=== PATIENT | male | born 1955 | race Caucasian/White ===

== ENCOUNTER 2016-08-24 10:16 | Day surgery (SDC) | payer OTHER ==
[~2016-08-24] VITALS: Ht 185.4 cm; Wt 101.8 kg
[2016-08-24] VITALS (9 sets, daily range): BP systolic 145–170; BP diastolic 70–91; PULSE 86–99; RESP 16–23; Ht 185.4 cm; Wt 101.8 kg
[2016-08-24] MEDS ORDERED: ENAL10TA PO (10:42)
[2016-08-24] MEDS ORDERED: METF-480 PO (10:43)
[2016-08-24 11:16] LABS: ADD SCAN DIFF NO
[2016-08-24 11:19] LABS: BASOPHIL # 0.1 10^3/ul (0.0-0.1); BASOPHILS % 0.8 % (0.0-2.0); EOSINOPHILS # 0.8 10^3/ul (0.0-0.5); EOSINOPHILS % 11.4 % (0.0-7.0); HEMATOCRIT 42.1 % (42.0-52.0); HEMOGLOBIN 13.9 g/dl (14.0-18.0); LYMPHOCYTES # 1.9 10^3/ul (0.8-2.9); LYMPHOCYTES % 26.9 % (15.0-51.0); MEAN CORPUSCULAR HEMOGLOBIN 30.3 pg (29.0-33.0); MEAN CORPUSCULAR VOLUME 91.7 fl (82.0-101.0); MEAN PLATELET VOLUME 11.9 fl (7.4-10.4); MONOCYTE # 0.7 10^3/ul (0.3-0.9); MONOCYTES % 9.8 % (0.0-11.0); NEUTROPHIL # 3.6 10^3/ul (1.6-7.5); NEUTROPHILS % 50.3 % (39.0-77.0); PLATELET COUNT 153 10^3/UL (140-415); RED BLOOD COUNT 4.59 10^6/ul (4.70-6.10); RED CELL DISTRIBUTION WIDTH 12.9 % (11.5-14.5); WHITE BLOOD COUNT 7.2 10^3/ul (4.8-10.8)
[2016-08-24 11:29] LABS: ALBUMIN 4.2 g/dl (3.3-4.9)
[2016-08-24 11:32] LABS: ALBUMIN/GLOBULIN RATIO 1.05; BILIRUBIN,INDIRECT 0.2 mg/dl (0-1.1); BILIRUBIN,TOTAL 0.2 mg/dl (0.2-1.3); TOTAL PROTEIN 8.2 g/dl (6.1-8.1)
[2016-08-24] MEDS ORDERED: LIDOCAINE 1% (MDV) 20 ML INJ ONE (11:53)
[2016-08-24] MEDS ORDERED: IODIXANOL LOCM 50 ML BTL ONE (11:53)
[2016-08-24] MEDS ORDERED: IODIXANOL LOCM 100 ML BTL ONE (11:53)
[2016-08-24 11:55] LABS: CALCIUM 9.5 mg/dl (8.4-10.2); CREATININE 0.82 mg/dl (0.61-1.24)
[2016-08-24 11:58] LABS: POTASSIUM 5.2 mmol/L (3.5-5.1)
[2016-08-24] MEDS ORDERED: FENTAnyl 50 MCG/ML VIAL ONE (12:00)
[2016-08-24] MEDS ORDERED: MIDAZOLAM 1 MG/ML 2 ML INJ ONE (12:01)
[2016-08-24 12:22] LABS: PARTIAL THROMBOPLASTIN TIME 25.7 Sec (25.0-35.0); PROTIME 12.3 Sec (12.2-14.2)
[2016-08-24] MEDS ORDERED: hydrALAzine 20 MG INJ ONE (13:12)
--- NOTE | 2016-08-24 13:36 | OPR ---
DATE OF OPERATION: 08/24/2016 PREPROCEDURE DIAGNOSIS: Severe left calf claudication. POSTPROCEDURE DIAGNOSIS: Severe left calf claudication. PROCEDURE PERFORMED 1. Abdominal aortogram. 2. Percutaneous catheter placement from right common femoral artery into left superficial femoral a rtery. 3. Abdominal aortogram and bilateral lower extremity runoff. SURGEON: Percy Sanchez MD ANESTHESIA: Local with sedation. ESTIMATED BLOOD LOSS: Minimal. COMPLICATIONS: No intraprocedural complications. INDICATIONS: This is a 61-year-old diabetic long time smoker with severe left calf claudication for at least 6 months. He had less than a block. He had a noninvasive testing which showed diffuse SF A disease, brought him in today for angiogram and possible intervention. PROCEDURE: The patient was brought to the cath lab tech and placed on the table in supine position. The groins were prepped and draped in usual sterile fashion. We began by using ultrasound guidance to identify the right common femoral artery. I infiltrated over the artery using about 10 mL of 1% Xyl ocaine and used a micropuncture needle to enter the artery under ultrasound guidance. An 0.018 wire was inserted through the needle into the artery then a micropuncture sheath was advanced over the w ketty into the artery. I then advanced 0.035 Bentson wire up into the abdominal aorta, exchanged the micropuncture sheath for a 5-Sudanese sheath over the wire. I then advanced an Omniflush catheter int o the infrarenal aorta and then we did an aortogram with bilateral runoff. I then advanced the cath eter up and over the bifurcation. I used the Omniflush and a Glidewire to advance the Glidewire up and over the bifurcation and into the left superficial femoral artery. Then I exchanged the Omniflu sh for a 4-Sudanese angled glide cath which was advanced into the left SFA and then did runoff down th e left lower extremity. FINDINGS OF ANGIOGRAPHY: The infrarenal aorta was patent. The renal arteries were not visualized. There is calcification and some diffuse irregularity, but no significant stenosis in the aortoiliac segment. Both common and profunda femoral arteries were widely patent. The right superficial femo ral and popliteal artery is widely patent with 3-vessel runoff on the right all the way down crossin g the ankle into the foot. He has normal runoff on the right. On the left, the proximal SFA is lik e a string and it occludes in the mid thigh. There is reconstitution of the popliteal artery right below the adductor canal with 3-vessel runoff below the knee. The vessels, given his size, are quit e small, but there are patent and there is really sluggish flow and has very poor collateralization. He was given his age, I wanted to talk to him about options prior to treating him. I have given t he option of doing a bypass. He has already been sedated, so I decided not to proceed with any furt her intervention. At this point, I removed all catheters, sheaths and wires and held pressure on the right groin until there was good hemostasis. I will see him back in the office and discuss the options of proceeding with percutaneous intervention, which probably has a fairly limited lifespan, and given his young a ge and very high activity level, he might be better off with the bypass and we will discuss that wit h him when we see him back for followup. Dictated By: PERCY PALACIOS/BAN Conf#: [id number] DID#: [id number]
== END 2016-08-24 17:02 | disposition home or self-care (01) ==
LOC: SDS 10:16
PROVIDERS: ATTEND Surgery Vascular Surgery
DX: I73.9 Peripheral vascular disease, unspecified (principal)
CPT/HCPCS: 36245; 75630; 80053; 82962; 85025; 85610; 85730; C1769; C1894; J0360; J1644; J2250; J3010; Q9967; Z7610

== ENCOUNTER 2016-08-27 11:26 | Emergency (ER) | payer OTHER ==
[~2016-08-27] VITALS: Ht 185.4 cm; Wt 105.0 kg
[~2016-08-27 11:26] MED LIST: ENAL10TA PO; METF-480 PO
[2016-08-27 11:37] VITALS: Ht 185.4 cm; Wt 105.0 kg
[2016-08-27 13:40] LABS: URINE BLOOD (Dip) POC Negative (NEGATIVE)
[2016-08-27] MEDS ORDERED: HYDROCODONE/APAP (5/325) TAB PO ONE (14:00)
[2016-08-27] MEDS ORDERED: HYDR-906 PO (15:07)
--- NOTE | 2016-08-27 15:07 | ERD ---
ER Documentation Chief Complaint Date/Time DATE: 08/27/16 TIME: 14:52 Chief Complaint BACK PAIN X3 DAYS, S/P ANGIOGRAM ON 08/24, HPI Pleasant 61-year-old male patient presents to emergency department today for back pain, reported right lumbar. Symptoms started 3 days ago, patient reports difficulty ambulating related to pain denies foot drag. Rising from a supine position, denies bowel or bladder incontinence. status post angiograph via right groin access for severe left calf claudication. Procedure performed by Dr. Ricardo Sanchez, reports abdominal aortogram, PTCA right common femoral artery into left superficial femoral artery and abdominal aortogram and bilateral lower extremity runoff. Patient reports no pain in right groin, states he developed back pain later in the evening after procedure. Pain is sharp, stabbing, 8/10 on pain scale. Patient has remote history of spinal fusion, has thoracic lumbar scar suggestive of fusion. Patient reports he normally has no pain in his back. Is currently taking no medication for symptomatic relief. Has follow-up appointment with watch and clock repair clerk in 2 days. Patient denies shortness of breath, palpitations, chest pain, or dizziness. Denies any change in left calf pain ROS All systems reviewed and are negative except as per history of present illness. Medications Home Meds Active Scripts Hydrocodone/Acetaminophen ([place] 5-325 Tablet) 1 Each Tablet, 1 TAB PO Q6H Y for PAIN, #20 TAB Prov:YON,ORLANDO 08/27/16 Reported Medications Metformin* (Glucophage*) 850 Mg Tablet, 850 MG PO WITH BREAKFAST DINNE, #30 TAB 08/24/16 Enalapril Maleate* (Enalapril Maleate*) 10 Mg Tablet, 10 MG PO BID, TAB 08/24/16 Allergies Allergies: Coded Allergies: Penicillins (Verified Allergy, Severe, RASH, 08/24/16) PER PT PMhx/Soc History of Surgery: Yes (L3-5 SX WITH TITANIUM, ANGIOGRAM) Anesthesia Reaction: No Hx Neurological Disorder: Yes (PERIPHERAL NEUROPATHY) Hx Respiratory Disorders: No Hx Cardiac Disorders: Yes (HTN, CAD) Hx Psychiatric Problems: No Hx Miscellaneous Medical Probl: No Hx Alcohol Use: Yes (FORMER) Hx Substance Use: No Hx Tobacco Use: No (LAST SMOKED [id number] AGO) Smoking Status: Former smoker Physical Exam Vitals Vital Signs Date Time Temp Pulse Resp B/P Pulse Ox O2 Delivery O2 Flow Rate FiO2 08/27/16 15:13 98.2 76 18 142/67 96 Room Air 08/27/16 11:37 98.6 106 19 155/70 95 Vitals stable, nursing notes reviewed Physical Exam Const: No acute distress Head: Atraumatic Eyes: Normal Conjunctiva clear, no pallor, no jaundice, EOMI, PERRLA ENT: Neck: Resp: Clear to auscultation bilaterally Cardio: Regular rate and rhythm, no murmurs Abd: Soft, non tender, non distended. N Skin: Right groin small puncture site from PTCA, no ecchymosis, no hematoma, no edema Back Exam: Skin: No bruising or rash Compartments: Soft Motor: Straight leg raises positive on the left at 30. Patient able to flex hip, Sensation: Intact to light touch throughout Bones: no midline TTP, paraspinal tenderness. Ext: No cyanosis, or edema Neur: Awake and alert Psych: Normal Mood and Affect Results 24 hrs Laboratory Tests Test 08/27/16 13:43 Bedside Urine Blood Negative Bedside Urine Glucose (UA) Negative Bedside Urine Ketones (LAB) Negative Bedside Urine Leukocyte Esterase (L Negative Bedside Urine Nitrite (LAB) Negative Bedside Urine Protein (LAB) Negative Bedside Urine pH (LAB) 5.5 Current Medications Medications (Trade) Dose Ordered Sig/Keila Route PRN Reason Start Time Stop Time Status Last Admin Dose Admin Acetaminophen/ Hydrocodone Bitart ([place] (5/325)) 1 tab ONCE ONCE PO 08/27/16 14:00 08/27/16 14:01 DC 08/27/16 14:08 Procedures/MDM Pleasant 61-year-old male patient presenting to emergency department with complaint of back pain. Patient has complex medical history including recent PTCA right common femoral artery to the left superficial femoral artery for severe left calf claudication. Patient is meeting with his watch and clock repair clerk in 2 days to discuss treatment options. Patient denies any change in left calf pain. Reports that he developed right-sided back pain after procedure. Patient has history of back surgery, status post spinal fusion in the remote past. Urinary tract infection likely after Chao catheter placement during procedure but ruled out by urine dip. Cauda equina included in differential but unlikely. Patient has no bowel or bladder incontinence. Difficulty ambulating not related to foot drag. I filled back pain is related to procedure and sheath removal. A trial of 5 mg [place] was given patient reassessed after 30 minutes, patient reports improvement in pain. He is able to move with increased flexibility and decreased pain. I feel the patient is stable for discharge at this time and is an excellent candidate for pain management if symptoms persist. I will prescribe a short dose of [place], patient will follow up with cardiology in 48 hours. Stressed the importance of communicating today's event with fabricating machine operator. I have discussed results, examination findings, the treatment plan with the patient and family present prior to discharge. Indications for emergent reevaluation chest pain, shortness of breath, difficulty ambulating, foot drag, urinary or bowel incontinence., side effects of medication were also discussed. All questions were answered. Patient verbalizes understanding and agrees with plan of care. Departure Diagnosis: Primary Impression: Back pain Chronicity: acute Back pain laterality: right Sciatica presence: without sciatica Condition: Fair Patient Instructions: Back Pain (Acute Or Chronic) Additional Instructions: Thank you for for coming to [facility] for your care today. Please ask your nurse or provider if you have questions about your care today and do not leave until all your questions have been answered. Please use any medications given as directed and follow-up with your doctor (or the doctor you were referred to) in the next 2-3 days. If you do not have a primary care doctor you may follow up at the [facility] (listed below). You may also use motrin and tylenol as needed for fever and/or pain unless instructed otherwise by your provider or nurse. Indications for more urgent follow-up have been discussed, but you may return to the Emergency Department at ANY time for any worrisome or worsening symptoms. If you have abdominal pain, please know that no test or exam you received is perfect and you should follow up within 8 hours for continued pain. If you had any imaging studies today, such as an X-Ray or CT Scan, these studies will be reviewed later by a radiologist. You will be called if there are important findings that were not identified today, so make sure the contact information you provided at registration is correct. If you received any narcotic pain control medicine today, such as Vicodin, Morphine or Dilaudid, your coordination and judgment may be affected for a number of hours. Please do not drive or operate heavy machinery, and you may want someone to assist you at home. If you were given a prescription for narcotic medication, be aware that it is very addictive- use sparingly and only if necessary. ORLANDO MARVIN Aug 27, 2016 15:06
[2016-08-27 15:13] VITALS: BP 142/67; PULSE 76; RESP 18; TEMP 98.2
== END 2016-08-27 15:14 | disposition home or self-care (01) ==
LOC: FTE 11:26
DX: M54.5 Low back pain (principal); I10 Essential (primary) hypertension; I25.10 Atherosclerotic heart disease of native coronary artery without angina pectoris; E11.9 Type 2 diabetes mellitus without complications; Z87.891 Personal history of nicotine dependence; Z79.84 Long term (current) use of oral hypoglycemic drugs
CPT/HCPCS: 81003; Z7502; Z7610; 99283

== ENCOUNTER 2017-03-03 14:24 | Inpatient (IN) | payer OTHER ==
[~2017-03-03] VITALS: Ht 185.4 cm; Wt 112.5 kg
[2017-03-03 14:00] VITALS: BP 114/57; RESP 20
[~2017-03-03 14:24] MED LIST changes: +HYDR-906 PO
[2017-03-03] MEDS: CYANOCOBALAMIN 100 MCG TAB PO SCH (16:00)
[2017-03-03] MEDS: ESCITALOPRAM 10 MG TAB PO SCH (16:00)
[2017-03-03] MEDS ORDERED: ONDANSETRON 4 MG TAB PO PRN (16:00)
[2017-03-03] MEDS ORDERED: LORATADINE 10 MG TAB PO PRN (16:00)
[2017-03-03] MEDS: ENOXAPARIN 40 MG/0.4 ML SYG SC SCH (16:00)
[2017-03-03] MEDS ORDERED: HYDROCODONE/APAP (5/325) TAB PO PRN (16:00)
[2017-03-03 16:11] VITALS: Ht 185.4 cm; Wt 112.5 kg
[2017-03-03] MEDS: HYDROCODONE/APAP (5/325) TAB PO PRN ×2 (16:28→20:30)
[2017-03-03] MEDS ORDERED: HYPOGLYCEMIA PROTOCOL when Glucose is <70 mg/dL or symptomatic <90 mg/dL. XX ONE (16:30)
[2017-03-03] MEDS ORDERED: GLUCOSE GEL 15 GRAM TUBE BUCCAL PRN (16:30)
[2017-03-03] MEDS ORDERED: GLUCOSE GEL 15 GRAM TUBE PO PRN ×2 (16:30)
[2017-03-03] MEDS ORDERED: Discontinue current oral sulfonylureas (glyburide, glipizide, and/or glimepiride) prior to XX ONE (16:30)
[2017-03-03] MEDS ORDERED: DEXTROSE 50% 50 ML SYRINGE IV PRN ×2 (16:30)
[2017-03-03] MEDS: NICOTINE (7 MG/24 HR) PATCH TRANSDERM SCH (16:30)
[2017-03-03] MEDS ORDERED: GLUCAGON 1 MG INJ IM PRN (16:30)
[2017-03-03] MEDS ORDERED: LACTULOSE 30ML CUP PO PRN (17:00)
[2017-03-03] MEDS: ALBUTEROL 0.5% (NEB) 2.5 MG/0.5 ML AMP INH SCH ×2 (17:00→21:00)
[2017-03-03] MEDS ORDERED: ACETAMINOPHEN 325 MG TAB PO PRN (17:00)
[2017-03-03] MEDS: IPRATROPIUM (NEB) 0.5 MG/2.5 ML AMP INH SCH ×2 (17:00→21:00)
[2017-03-03] MEDS ORDERED: MAGNESIUM HYDROXIDE 30ML CUP PO PRN (17:00)
[2017-03-03] MEDS ORDERED: BISACODYL 10 MG SUPP PR PRN (17:00)
[2017-03-03] MEDS ORDERED: INSULIN ASPART [NOVOLOG] 3 ML PEN SC SCH (17:35)
[2017-03-03 17:37] LABS: ADD UMIC YES; UR ASCORBIC ACID NEGATIVE (NEGATIVE); UR BILIRUBIN (Dip) 1+ mg/dL (NEGATIVE); UR BLOOD (Dip) NEGATIVE (NEGATIVE); UR CLARITY CLEAR (CLEAR); UR COLOR AMBER (YELLOW); UR GLUCOSE (Dip) 1+ mg/dL (NEGATIVE); UR KETONES (Dip) NEGATIVE (NEGATIVE); UR LEUKOCYTE ESTERASE (Dip) TRACE Leu/ul (NEGATIVE); UR NITRITE (Dip) NEGATIVE (NEGATIVE); UR RBC 3 /HPF (0-5); UR SPECIFIC GRAVITY (Dip) 1.021 (1.003-1.030); UR TOTAL PROTEIN (Dip) NEGATIVE (NEGATIVE); UR UROBILINOGEN (Dip) 2+ mg/dL (NEGATIVE)
[2017-03-03] MEDS: metFORMIN 500 MG TAB PO SCH (17:50)
[2017-03-03] MEDS: Insulin NOVOLOG SS MILD Algorithm (SS with meals and bedtime) SC SCH ×2 (17:51→21:00)
[2017-03-03 20:00] VITALS: BP 129/67; RESP 18
[2017-03-03] MEDS: BUDESONIDE (NEB) 0.5MG/2ML AMP INH SCH (20:00)
[2017-03-03] MEDS: TAMSULOSIN (SR) 0.4 MG CAP PO SCH (20:30)
[2017-03-03] MEDS: FAMOTIDINE 20 MG TAB PO SCH (20:31)
[2017-03-03] MEDS: METOPROLOL 50 MG TAB PO SCH (20:31)
[2017-03-03] MEDS: ENALAPRIL 5 MG TAB PO SCH (20:32)
[2017-03-03] MEDS: SENNA TAB PO SCH (20:33)
[2017-03-03] MEDS: GABAPENTIN 400 MG CAP PO SCH (21:47)
[2017-03-03] MEDS: morphine (ER) 15 MG TAB PO SCH (21:47)
[2017-03-04 02:00] VITALS: BP 125/63; RESP 18
[2017-03-04] MEDS: ACCU-CHEK XX SCH (02:00)
[2017-03-04] MEDS: morphine (ER) 15 MG TAB PO SCH ×3 (05:30→21:36)
[2017-03-04] MEDS: GABAPENTIN 400 MG CAP PO SCH ×3 (05:30→21:36)
[2017-03-04 07:10] LABS: BASOPHILS % 0.5 % (0.0-2.0); EOSINOPHILS # 0.8 10^3/ul (0.0-0.5); EOSINOPHILS % 10.7 % (0.0-7.0); HEMATOCRIT 25.9 % (42.0-52.0); HEMOGLOBIN 8.5 g/dl (14.0-18.0); LYMPHOCYTES # 1.1 10^3/ul (0.8-2.9); LYMPHOCYTES % 14.4 % (15.0-51.0); MEAN CORPUSCULAR HEMOGLOBIN 30.4 pg (29.0-33.0); MEAN CORPUSCULAR HGB CONC 32.8 g/dl (32.0-37.0); MEAN CORPUSCULAR VOLUME 92.5 fl (82.0-101.0); MEAN PLATELET VOLUME 10.7 fl (7.4-10.4); MONOCYTE # 0.8 10^3/ul (0.3-0.9); MONOCYTES % 10.3 % (0.0-11.0); NEUTROPHILS % 62.3 % (39.0-77.0); PLATELET COUNT 313 10^3/UL (140-415); RED CELL DISTRIBUTION WIDTH 13.1 % (11.5-14.5); WHITE BLOOD COUNT 7.7 10^3/ul (4.8-10.8)
[2017-03-04 07:47] LABS: ALBUMIN 2.8 g/dl (3.3-4.9); ALBUMIN/GLOBULIN RATIO 0.87; BILIRUBIN,INDIRECT 0.6 mg/dl (0-1.1); BILIRUBIN,TOTAL 0.6 mg/dl (0.2-1.3); CALCIUM 8.7 mg/dl (8.4-10.2); CREATININE 0.72 mg/dl (0.61-1.24); POTASSIUM 4.4 mmol/L (3.5-5.1)
[2017-03-04 08:00] VITALS: BP 129/62; RESP 18
[2017-03-04] MEDS: BUDESONIDE (NEB) 0.5MG/2ML AMP INH SCH ×2 (08:00→19:57)
[2017-03-04] MEDS: CYANOCOBALAMIN 100 MCG TAB PO SCH (08:18)
[2017-03-04] MEDS: FAMOTIDINE 20 MG TAB PO SCH ×2 (08:19→21:36)
[2017-03-04] MEDS: DOCUSATE SODIUM 100 MG CAP PO SCH (08:19)
[2017-03-04] MEDS: NICOTINE (7 MG/24 HR) PATCH TRANSDERM SCH (08:19)
[2017-03-04] MEDS: ESCITALOPRAM 10 MG TAB PO SCH (08:19)
[2017-03-04] MEDS: METOPROLOL 50 MG TAB PO SCH ×2 (08:20→21:37)
[2017-03-04] MEDS: ENALAPRIL 5 MG TAB PO SCH ×2 (08:21→21:37)
[2017-03-04] MEDS: metFORMIN 500 MG TAB PO SCH ×2 (08:21→17:32)
[2017-03-04] MEDS: HYDROCODONE/APAP (5/325) TAB PO PRN ×3 (08:21→17:31)
[2017-03-04] MEDS: Insulin NOVOLOG SS MILD Algorithm (SS with meals and bedtime) SC SCH ×4 (08:25→21:47)
[2017-03-04] MEDS: ENOXAPARIN 40 MG/0.4 ML SYG SC SCH (08:26)
[2017-03-04] MEDS: IPRATROPIUM (NEB) 0.5 MG/2.5 ML AMP INH SCH ×4 (08:34→19:57)
[2017-03-04] MEDS: ALBUTEROL 0.5% (NEB) 2.5 MG/0.5 ML AMP INH SCH ×4 (08:34→19:58)
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
[2017-03-04 21:13] VITALS: BP 126/61; RESP 18
[2017-03-04] MEDS: SENNA TAB PO SCH (21:36)
[2017-03-04] MEDS: TAMSULOSIN (SR) 0.4 MG CAP PO SCH (21:36)
[2017-03-04] MEDS: hydrOXYzine HCL 25 MG TAB PO PRN (22:40)
[2017-03-05 02:00] VITALS: BP 123/67; RESP 18
[2017-03-05] MEDS: HYDROCODONE/APAP (5/325) TAB PO PRN ×4 (02:52→23:01)
[2017-03-05] MEDS: ACCU-CHEK XX SCH (03:03)
[2017-03-05] MEDS: morphine (ER) 15 MG TAB PO SCH ×3 (06:31→21:09)
[2017-03-05] MEDS: GABAPENTIN 400 MG CAP PO SCH ×3 (06:31→21:10)
[2017-03-05] MEDS: BUDESONIDE (NEB) 0.5MG/2ML AMP INH SCH ×2 (08:00→20:00)
[2017-03-05] MEDS: IPRATROPIUM (NEB) 0.5 MG/2.5 ML AMP INH SCH ×4 (08:08→20:57)
[2017-03-05] MEDS: ALBUTEROL 0.5% (NEB) 2.5 MG/0.5 ML AMP INH SCH ×4 (08:08→20:57)
[2017-03-05] MEDS: metFORMIN 500 MG TAB PO SCH ×2 (08:10→17:38)
[2017-03-05] MEDS: Insulin NOVOLOG SS MILD Algorithm (SS with meals and bedtime) SC SCH ×4 (08:10→21:00)
[2017-03-05] MEDS: ENOXAPARIN 40 MG/0.4 ML SYG SC SCH (08:11)
[2017-03-05] MEDS: DOCUSATE SODIUM 100 MG CAP PO SCH (08:12)
[2017-03-05] MEDS: NICOTINE (7 MG/24 HR) PATCH TRANSDERM SCH (08:12)
[2017-03-05] MEDS: ESCITALOPRAM 10 MG TAB PO SCH (08:12)
[2017-03-05] MEDS: CYANOCOBALAMIN 100 MCG TAB PO SCH (08:12)
[2017-03-05] MEDS: FAMOTIDINE 20 MG TAB PO SCH ×2 (08:12→21:13)
[2017-03-05] MEDS: METOPROLOL 50 MG TAB PO SCH ×2 (08:13→21:13)
[2017-03-05] MEDS: ENALAPRIL 5 MG TAB PO SCH ×2 (08:14→21:14)
[2017-03-05 19:59] VITALS: BP 125/61; RESP 18
[2017-03-05] MEDS: SENNA TAB PO SCH (21:00)
[2017-03-05] MEDS: TAMSULOSIN (SR) 0.4 MG CAP PO SCH (21:14)
[2017-03-05] MEDS: hydrOXYzine HCL 25 MG TAB PO PRN (23:03)
[2017-03-06 02:00] VITALS: BP 126/58; RESP 18
[2017-03-06] MEDS: ACCU-CHEK XX SCH (02:00)
[2017-03-06] MEDS: morphine (ER) 15 MG TAB PO SCH ×3 (06:15→21:25)
[2017-03-06] MEDS: GABAPENTIN 400 MG CAP PO SCH ×3 (06:15→21:25)
[2017-03-06 07:30] VITALS: BP 125/61; RESP 18
[2017-03-06] MEDS: BUDESONIDE (NEB) 0.5MG/2ML AMP INH SCH ×2 (08:00→20:00)
[2017-03-06] MEDS: ALBUTEROL 0.5% (NEB) 2.5 MG/0.5 ML AMP INH SCH ×4 (08:04→21:12)
[2017-03-06] MEDS: IPRATROPIUM (NEB) 0.5 MG/2.5 ML AMP INH SCH ×4 (08:04→21:13)
[2017-03-06] MEDS: HYDROCODONE/APAP (5/325) TAB PO PRN ×3 (08:22→23:13)
[2017-03-06] MEDS: Insulin NOVOLOG SS MILD Algorithm (SS with meals and bedtime) SC SCH ×4 (08:23→21:34)
[2017-03-06] MEDS: ENOXAPARIN 40 MG/0.4 ML SYG SC SCH (08:26)
[2017-03-06] MEDS: NICOTINE (7 MG/24 HR) PATCH TRANSDERM SCH (08:27)
[2017-03-06] MEDS: CYANOCOBALAMIN 100 MCG TAB PO SCH (08:28)
[2017-03-06] MEDS: FAMOTIDINE 20 MG TAB PO SCH ×2 (08:28→21:26)
[2017-03-06] MEDS: metFORMIN 500 MG TAB PO SCH ×2 (08:28→18:04)
[2017-03-06] MEDS: DOCUSATE SODIUM 100 MG CAP PO SCH (08:29)
[2017-03-06] MEDS: METOPROLOL 50 MG TAB PO SCH ×2 (08:29→21:27)
[2017-03-06] MEDS: ESCITALOPRAM 10 MG TAB PO SCH (08:29)
[2017-03-06] MEDS: ENALAPRIL 5 MG TAB PO SCH ×2 (08:33→21:27)
[2017-03-06] MEDS ORDERED: morphine (ER) 15 MG TAB PO ONE (11:30)
--- NOTE | 2017-03-06 12:08 | CONS ---
Date/Time of Note Date/Time of Note DATE: 03/06/17 TIME: 12:02 Consult Date/Type/Reason Admit Date/Time Mar 03, 2017 at 14:24 Initial Consult Date Subjective Still with pain Objective Vital Signs Date Time Temp Pulse Resp B/P Pulse Ox O2 Delivery O2 Flow Rate FiO2 03/06/17 07:30 98.8 89 18 125/61 91 03/05/17 20:57 21 03/05/17 08:00 Nasal Cannula 2.0 Intake and Output 03/05/17 03/05/17 03/06/17 15:00 23:00 07:00 Intake Total 500 ml 720 ml Output Total 410 ml 650 ml Balance 500 ml 310 ml -650 ml INTERDISCIPLINARY TEAM CONFERENCE BOWEL- Cont BLADDER-Cont SKIN- intact OT- DRESSING-max BATHING-max TOILETING-max PT- BED MOBILITY-max TRANSFERS-max AMBULATION-UA W.C. MOBILITY-max A/P- Interdisciplinary team conference held today. Please see interdisciplinary sheet. Working toward d.c. on 03/17 with post discharge follow up of physical therapy, occupational therapy. Results/Medications Result Diagram: 03/04/17 0644 03/04/17 0644 Results 24 hrs Laboratory Tests Test 03/05/17 12:14 03/05/17 17:32 03/05/17 21:00 03/06/17 08:01 Bedside Glucose 193 145 146 168 Medications Current Medications Cyanocobalamin (Vitamin B12) 100 mcg DAILY PO Last administered on 03/06/17 08 :28; Admin Dose 100 MCG; Start 03/03/17 at 16:00 Enoxaparin Sodium (Lovenox) 40 mg DAILY SC Last administered on 03/06/17 08:26 ; Admin Dose 40 MG; Start 03/03/17 at 16:00; Stop 03/16/17 at 09:01 Escitalopram Oxalate (Lexapro) 10 mg DAILY PO Last administered on 03/06/17 08 :29; Admin Dose 10 MG; Start 03/03/17 at 16:00 Famotidine (Pepcid) 20 mg BID PO Last administered on 03/06/17 08:28; Admin Dose 20 MG; Start 03/03/17 at 21:00 Loratadine (Claritin) 10 mg DAILY PRN PO ITCHING/ALLERGIES; Start 03/03/17 at 16 :00 Metoprolol Tartrate (Lopressor) 50 mg BID PO Last administered on 03/06/17 08: 29; Admin Dose 50 MG; Start 03/03/17 at 21:00 Morphine Sulfate (Ms Contin (Er)) 15 mg Q8 PO Last administered on 03/06/17 06 :15; Admin Dose 15 MG; Start 03/03/17 at 22:00 Nicotine (Nicoderm 7 Mg/ 24 Hr) 1 patch DAILY TRANSDERM Last administered on 08:27; Admin Dose 1 PATCH; Start 03/03/17 at 16:30 Tamsulosin HCl (Flomax) 0.4 mg DAILY@21 PO Last administered on 03/05/17 21:14 ; Admin Dose 0.4 MG; Start 03/03/17 at 21:00 Enalapril Maleate (Vasotec) 5 mg BID PO Last administered on 03/06/17 08:33; Admin Dose 5 MG; Start 03/03/17 at 21:00 Gabapentin (Neurontin) 400 mg Q8 PO Last administered on 03/06/17 06:15; Admin Dose 400 MG; Start 03/03/17 at 22:00 Ondansetron HCl (Zofran Tab) 4 mg Q6H PRN PO NAUSEA AND/OR VOMITING; Start 03/03 at 16:00 Acetaminophen/ Hydrocodone Bitart ([place] (5/325)) 1 tab Q4H PRN PO MODERATE PAIN; Start 03/03/17 at 16:00 Acetaminophen/ Hydrocodone Bitart ([place] (5/325)) 2 tab Q4H PRN PO SEVERE PAIN Last administered on 03/06/17 08:22; Admin Dose 2 TAB; Start 03/03/17 at 16:00 Diagnostic Test (Pha) (Accu-Chek) 1 ea 02 XX ; Start 03/04/17 at 02:00 Miscellaneous Information 1 ea NOTE XX ; Start 03/03/17 at 16:30 Glucose (Glutose) 15 gm Q15M PRN PO DECREASED GLUCOSE; Start 03/03/17 at 16:30 Glucose (Glutose) 22.5 gm Q15M PRN PO DECREASED GLUCOSE; Start 03/03/17 at 16:30 Dextrose (D50w Syringe) 25 ml Q15M PRN IV DECREASED GLUCOSE; Start 03/03/17 at 16:30 Dextrose (D50w Syringe) 50 ml Q15M PRN IV DECREASED GLUCOSE; Start 03/03/17 at 16:30 Glucagon (Glucagen) 1 mg Q15M PRN IM DECREASED GLUCOSE; Start 03/03/17 at 16:30 Glucose (Glutose) 15 gm Q15M PRN BUCCAL DECREASED GLUCOSE; Start 03/03/17 at 16: 30 Docusate Sodium (Colace) 100 mg DAILY PO Last administered on 03/06/17 08:29; Admin Dose 100 MG; Start 03/04/17 at 09:00 Senna (Senokot) 1 tab HS PO Last administered on 03/04/17 21:36; Admin Dose 1 TAB; Start 03/03/17 at 21:00 Acetaminophen (Tylenol Tab) 650 mg Q4H PRN PO PAIN AND OR ELEVATED TEMP; Start 03/03/17 at 17:00 Bisacodyl (Dulcolax Supp) 10 mg DAILY PRN [place] CONSTIPATION; Start 03/03/17 at 17: 00 Magnesium Hydroxide (Milk Of Mag) 30 ml BID PRN PO CONSTIPATION; Start 03/03/17 at 17:00 Lactulose (Enulose) 10 gm DAILY PRN PO CONSTIPATION; Start 03/03/17 at 17:00 Hydroxyzine HCl (Atarax) 50 mg HS PRN PO ITCHING Last administered on 23:03; Admin Dose 50 MG; Start 03/04/17 at 12:30 TRAVIS ALMONTE MD Mar 06, 2017 12:08
[2017-03-06 14:00] VITALS: BP 104/57; RESP 20
[2017-03-06 20:00] VITALS: BP 106/58; RESP 18
[2017-03-06] MEDS: SENNA TAB PO SCH (21:00)
[2017-03-06] MEDS: TAMSULOSIN (SR) 0.4 MG CAP PO SCH (21:25)
[2017-03-06] MEDS: hydrOXYzine HCL 25 MG TAB PO PRN (21:26)
[2017-03-07 02:00] VITALS: BP 118/63; RESP 18
[2017-03-07] MEDS: ACCU-CHEK XX SCH (02:00)
[2017-03-07] MEDS: GABAPENTIN 400 MG CAP PO SCH ×3 (06:30→21:28)
[2017-03-07] MEDS: morphine (ER) 15 MG TAB PO SCH ×3 (06:31→21:28)
[2017-03-07] MEDS: Insulin NOVOLOG SS MILD Algorithm (SS with meals and bedtime) SC SCH ×4 (07:59→21:00)
[2017-03-07] MEDS: BUDESONIDE (NEB) 0.5MG/2ML AMP INH SCH ×2 (08:00→20:00)
[2017-03-07] MEDS: HYDROCODONE/APAP (5/325) TAB PO PRN ×4 (08:01→23:07)
[2017-03-07] MEDS: metFORMIN 500 MG TAB PO SCH ×2 (08:01→17:31)
[2017-03-07] MEDS: ENOXAPARIN 40 MG/0.4 ML SYG SC SCH (08:08)
[2017-03-07 08:10] VITALS: BP 127/61; PULSE 84; RESP 20
[2017-03-07] MEDS: ESCITALOPRAM 10 MG TAB PO SCH (08:10)
[2017-03-07] MEDS: METOPROLOL 50 MG TAB PO SCH ×2 (08:10→21:22)
[2017-03-07] MEDS: NICOTINE (7 MG/24 HR) PATCH TRANSDERM SCH (08:10)
[2017-03-07] MEDS: CYANOCOBALAMIN 100 MCG TAB PO SCH (08:10)
[2017-03-07] MEDS: FAMOTIDINE 20 MG TAB PO SCH ×2 (08:11→21:20)
[2017-03-07] MEDS: ENALAPRIL 5 MG TAB PO SCH ×2 (08:11→21:20)
[2017-03-07] MEDS: DOCUSATE SODIUM 100 MG CAP PO SCH (08:11)
[2017-03-07] MEDS: ALBUTEROL 0.5% (NEB) 2.5 MG/0.5 ML AMP INH SCH ×4 (09:00→21:00)
[2017-03-07] MEDS: IPRATROPIUM (NEB) 0.5 MG/2.5 ML AMP INH SCH ×4 (09:00→21:00)
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
[2017-03-07 14:45] VITALS: BP 109/59; RESP 20
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
[2017-03-07 20:00] VITALS: BP 115/57; RESP 18
[2017-03-07] MEDS: SENNA TAB PO SCH (21:00)
[2017-03-07] MEDS: hydrOXYzine HCL 25 MG TAB PO PRN (21:20)
[2017-03-07] MEDS: TAMSULOSIN (SR) 0.4 MG CAP PO SCH (21:22)
[2017-03-08 02:00] VITALS: BP 118/64; RESP 18
[2017-03-08] MEDS: ACCU-CHEK XX SCH (02:00)
[2017-03-08] MEDS: GABAPENTIN 400 MG CAP PO SCH ×3 (05:51→21:34)
[2017-03-08] MEDS: morphine (ER) 15 MG TAB PO SCH (05:51)
[2017-03-08 07:00] VITALS: BP 122/58; RESP 18
[2017-03-08] MEDS: BUDESONIDE (NEB) 0.5MG/2ML AMP INH SCH ×2 (08:00→20:00)
[2017-03-08] MEDS: IPRATROPIUM (NEB) 0.5 MG/2.5 ML AMP INH SCH ×4 (08:00→21:13)
[2017-03-08] MEDS: ALBUTEROL 0.5% (NEB) 2.5 MG/0.5 ML AMP INH SCH ×4 (08:00→21:13)
[2017-03-08] MEDS: FAMOTIDINE 20 MG TAB PO SCH ×2 (08:22→21:36)
[2017-03-08] MEDS: ESCITALOPRAM 10 MG TAB PO SCH (08:22)
[2017-03-08 08:23] VITALS: BP 135/85; PULSE 85
[2017-03-08] MEDS: metFORMIN 500 MG TAB PO SCH ×2 (08:23→18:04)
[2017-03-08] MEDS: METOPROLOL 50 MG TAB PO SCH ×2 (08:23→21:37)
[2017-03-08] MEDS: ENALAPRIL 5 MG TAB PO SCH ×2 (08:23→21:35)
[2017-03-08] MEDS: DOCUSATE SODIUM 100 MG CAP PO SCH (08:23)
[2017-03-08] MEDS: CYANOCOBALAMIN 100 MCG TAB PO SCH (08:24)
[2017-03-08] MEDS: NICOTINE (7 MG/24 HR) PATCH TRANSDERM SCH (08:24)
[2017-03-08] MEDS: Insulin NOVOLOG SS MILD Algorithm (SS with meals and bedtime) SC SCH ×4 (08:29→21:46)
[2017-03-08] MEDS: HYDROCODONE/APAP (5/325) TAB PO PRN ×2 (08:41→15:17)
[2017-03-08] MEDS: ENOXAPARIN 40 MG/0.4 ML SYG SC SCH (09:19)
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
[2017-03-08] MEDS: morphine (ER) 30 MG TAB PO SCH ×2 (13:19→21:36)
[2017-03-08 14:00] VITALS: BP 135/63; RESP 18
[2017-03-08] MEDS ORDERED: morphine (ER) 30 MG TAB PO SCH (14:00)
[2017-03-08] MEDS ORDERED: morphine (ER) 15 MG TAB PO SCH (14:00)
[2017-03-08 20:00] VITALS: BP 128/61; RESP 18
[2017-03-08] MEDS: SENNA TAB PO SCH ×2 (21:00→21:39)
[2017-03-08] MEDS: TAMSULOSIN (SR) 0.4 MG CAP PO SCH (21:34)
[2017-03-08] MEDS: hydrOXYzine HCL 25 MG TAB PO PRN (21:37)
[2017-03-09] MEDS: HYDROCODONE/APAP (5/325) TAB PO PRN ×5 (00:19→17:36)
[2017-03-09 02:00] VITALS: BP 124/63; RESP 18
[2017-03-09] MEDS: ACCU-CHEK XX SCH (02:35)
[2017-03-09] MEDS: GABAPENTIN 400 MG CAP PO SCH ×3 (06:40→21:23)
[2017-03-09] MEDS: morphine (ER) 30 MG TAB PO SCH ×3 (06:44→21:24)
[2017-03-09 07:46] VITALS: BP 102/55; RESP 18
[2017-03-09] MEDS: NICOTINE (7 MG/24 HR) PATCH TRANSDERM SCH (07:59)
[2017-03-09] MEDS: DOCUSATE SODIUM 100 MG CAP PO SCH (08:00)
[2017-03-09] MEDS: BUDESONIDE (NEB) 0.5MG/2ML AMP INH SCH ×2 (08:00→20:00)
[2017-03-09] MEDS: ENOXAPARIN 40 MG/0.4 ML SYG SC SCH (08:00)
[2017-03-09] MEDS: metFORMIN 500 MG TAB PO SCH ×2 (08:01→17:53)
[2017-03-09] MEDS: FAMOTIDINE 20 MG TAB PO SCH ×2 (08:01→21:22)
[2017-03-09] MEDS: Insulin NOVOLOG SS MILD Algorithm (SS with meals and bedtime) SC SCH ×4 (08:04→21:00)
[2017-03-09 09:00] VITALS: BP 100/50
[2017-03-09] MEDS: IPRATROPIUM (NEB) 0.5 MG/2.5 ML AMP INH SCH ×4 (09:00→20:25)
[2017-03-09] MEDS: ALBUTEROL 0.5% (NEB) 2.5 MG/0.5 ML AMP INH SCH ×4 (09:00→20:25)
[2017-03-09] MEDS: ESCITALOPRAM 10 MG TAB PO SCH (12:22)
[2017-03-09] MEDS: METOPROLOL 50 MG TAB PO SCH ×2 (12:23→21:23)
[2017-03-09] MEDS: ENALAPRIL 5 MG TAB PO SCH ×2 (12:23→21:23)
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
[2017-03-09] MEDS: CYANOCOBALAMIN 100 MCG TAB PO SCH (14:04)
[2017-03-09 20:00] VITALS: BP 114/57; RESP 18
[2017-03-09] MEDS: SENNA TAB PO SCH (21:00)
[2017-03-09] MEDS: TAMSULOSIN (SR) 0.4 MG CAP PO SCH (21:23)
[2017-03-09] MEDS: hydrOXYzine HCL 25 MG TAB PO PRN (21:24)
[2017-03-10 02:00] VITALS: BP 120/62; RESP 18
[2017-03-10] MEDS: ACCU-CHEK XX SCH (02:00)
[2017-03-10] MEDS: morphine (ER) 30 MG TAB PO SCH ×3 (06:24→22:22)
[2017-03-10] MEDS: GABAPENTIN 400 MG CAP PO SCH ×3 (06:24→22:21)
[2017-03-10] MEDS: Insulin NOVOLOG SS MILD Algorithm (SS with meals and bedtime) SC SCH ×5 (07:05→20:46)
[2017-03-10] MEDS: BUDESONIDE (NEB) 0.5MG/2ML AMP INH SCH ×2 (08:00→20:20)
[2017-03-10] MEDS: IPRATROPIUM (NEB) 0.5 MG/2.5 ML AMP INH SCH ×4 (08:11→20:20)
[2017-03-10] MEDS: ALBUTEROL 0.5% (NEB) 2.5 MG/0.5 ML AMP INH SCH ×4 (08:11→20:20)
[2017-03-10] MEDS: metFORMIN 500 MG TAB PO SCH ×2 (08:55→17:19)
[2017-03-10] MEDS: FAMOTIDINE 20 MG TAB PO SCH ×2 (08:56→20:39)
[2017-03-10] MEDS: DOCUSATE SODIUM 100 MG CAP PO SCH (08:56)
[2017-03-10] MEDS: CYANOCOBALAMIN 100 MCG TAB PO SCH (08:57)
[2017-03-10] MEDS: ESCITALOPRAM 10 MG TAB PO SCH (08:57)
[2017-03-10 08:58] VITALS: BP 125/62; PULSE 87; RESP 20
[2017-03-10] MEDS: METOPROLOL 50 MG TAB PO SCH ×2 (08:59→20:45)
[2017-03-10] MEDS: ENALAPRIL 5 MG TAB PO SCH ×2 (09:00→20:46)
[2017-03-10] MEDS: NICOTINE (7 MG/24 HR) PATCH TRANSDERM SCH (09:01)
[2017-03-10] MEDS: ENOXAPARIN 40 MG/0.4 ML SYG SC SCH (09:07)
[2017-03-10] MEDS: HYDROCODONE/APAP (5/325) TAB PO PRN ×3 (09:10→17:23)
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
[2017-03-10 16:30] VITALS: BP 109/57; RESP 18
[2017-03-10 20:00] VITALS: BP 107/52; RESP 18
[2017-03-10] MEDS: TAMSULOSIN (SR) 0.4 MG CAP PO SCH (20:39)
[2017-03-10] MEDS: SENNA TAB PO SCH (20:45)
[2017-03-10 20:46] VITALS: BP 85/48; PULSE 90; RESP 20
[2017-03-10] MEDS: hydrOXYzine HCL 25 MG TAB PO PRN (22:26)
[2017-03-11 00:25] VITALS: BP 133/62; PULSE 91; RESP 18
[2017-03-11] MEDS: HYDROCODONE/APAP (5/325) TAB PO PRN ×2 (00:25→08:11)
[2017-03-11 02:00] VITALS: BP 122/68; RESP 18
[2017-03-11] MEDS: ACCU-CHEK XX SCH (02:00)
[2017-03-11] MEDS: GABAPENTIN 400 MG CAP PO SCH ×3 (05:50→21:38)
[2017-03-11] MEDS: morphine (ER) 30 MG TAB PO SCH (05:53)
[2017-03-11 07:30] VITALS: BP 125/58; RESP 20
[2017-03-11] MEDS: BUDESONIDE (NEB) 0.5MG/2ML AMP INH SCH ×2 (08:00→20:00)
[2017-03-11] MEDS: metFORMIN 500 MG TAB PO SCH ×2 (08:10→17:26)
[2017-03-11] MEDS: FAMOTIDINE 20 MG TAB PO SCH ×2 (08:10→20:37)
[2017-03-11] MEDS: ESCITALOPRAM 10 MG TAB PO SCH (08:11)
[2017-03-11] MEDS: CYANOCOBALAMIN 100 MCG TAB PO SCH (08:11)
[2017-03-11] MEDS: Insulin NOVOLOG SS MILD Algorithm (SS with meals and bedtime) SC SCH ×4 (08:15→20:39)
[2017-03-11] MEDS: METOPROLOL 50 MG TAB PO SCH ×2 (08:21→20:36)
[2017-03-11] MEDS: DOCUSATE SODIUM 100 MG CAP PO SCH (08:21)
[2017-03-11] MEDS: ENALAPRIL 5 MG TAB PO SCH ×2 (08:21→20:37)
[2017-03-11] MEDS: NICOTINE (7 MG/24 HR) PATCH TRANSDERM SCH (08:25)
[2017-03-11] MEDS: ENOXAPARIN 40 MG/0.4 ML SYG SC SCH (08:26)
[2017-03-11 08:29] VITALS: BP 150/64; PULSE 94; RESP 16
[2017-03-11] MEDS: IPRATROPIUM (NEB) 0.5 MG/2.5 ML AMP INH SCH ×5 (09:00→21:04)
[2017-03-11] MEDS: ALBUTEROL 0.5% (NEB) 2.5 MG/0.5 ML AMP INH SCH ×5 (09:00→21:04)
[2017-03-11] MEDS ORDERED: HYDROCODONE/APAP (10/325) TAB NGT PRN (10:00)
[2017-03-11] MEDS ORDERED: HYDROCODONE/APAP (10/325) TAB PO PRN (10:00)
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
[2017-03-11] MEDS ORDERED: HYDROCODONE/APAP (5/325) TAB PO PRN (10:30)
[2017-03-11] MEDS: morphine (ER) 15 MG TAB PO SCH ×2 (12:08→16:27)
[2017-03-11] MEDS: HYDROmorphONE 2 MG TAB PO PRN ×3 (13:07→21:37)
[2017-03-11 14:00] VITALS: BP 109/56; RESP 18
[2017-03-11 19:50] VITALS: BP 122/58; PULSE 93; RESP 18
[2017-03-11] MEDS: TAMSULOSIN (SR) 0.4 MG CAP PO SCH (20:36)
[2017-03-11] MEDS: SENNA TAB PO SCH (20:42)
[2017-03-11] MEDS: hydrOXYzine HCL 25 MG TAB PO PRN (21:35)
[2017-03-12] MEDS: ACCU-CHEK XX SCH (02:00)
[2017-03-12] MEDS: GABAPENTIN 400 MG CAP PO SCH ×3 (06:25→22:45)
[2017-03-12 07:30] VITALS: BP 132/62; RESP 20
[2017-03-12] MEDS: BUDESONIDE (NEB) 0.5MG/2ML AMP INH SCH ×2 (08:00→20:00)
[2017-03-12] MEDS: morphine (ER) 15 MG TAB PO SCH ×3 (08:11→17:13)
[2017-03-12] MEDS: NICOTINE (7 MG/24 HR) PATCH TRANSDERM SCH (08:11)
[2017-03-12] MEDS: CYANOCOBALAMIN 100 MCG TAB PO SCH (08:11)
[2017-03-12] MEDS: ESCITALOPRAM 10 MG TAB PO SCH (08:11)
[2017-03-12] MEDS: Insulin NOVOLOG SS MILD Algorithm (SS with meals and bedtime) SC SCH ×4 (08:14→20:29)
[2017-03-12] MEDS: metFORMIN 500 MG TAB PO SCH ×2 (08:15→17:13)
[2017-03-12] MEDS: FAMOTIDINE 20 MG TAB PO SCH ×2 (08:15→20:16)
[2017-03-12] MEDS: METOPROLOL 50 MG TAB PO SCH ×2 (08:15→20:15)
[2017-03-12] MEDS: ENALAPRIL 5 MG TAB PO SCH ×2 (08:15→20:17)
[2017-03-12] MEDS: ENOXAPARIN 40 MG/0.4 ML SYG SC SCH (08:16)
[2017-03-12] MEDS: DOCUSATE SODIUM 100 MG CAP PO SCH (08:16)
[2017-03-12 08:25] VITALS: BP 148/68; PULSE 88; RESP 16
[2017-03-12] MEDS: IPRATROPIUM (NEB) 0.5 MG/2.5 ML AMP INH SCH ×4 (09:00→21:03)
[2017-03-12] MEDS: ALBUTEROL 0.5% (NEB) 2.5 MG/0.5 ML AMP INH SCH ×4 (09:00→21:03)
[2017-03-12] MEDS: HYDROmorphONE 2 MG TAB PO PRN ×3 (10:21→20:16)
[2017-03-12 14:00] VITALS: BP 125/60; RESP 18
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
[2017-03-12 20:00] VITALS: BP 133/64; RESP 18
[2017-03-12] MEDS: TAMSULOSIN (SR) 0.4 MG CAP PO SCH (20:14)
[2017-03-12] MEDS: SENNA TAB PO SCH (20:15)
[2017-03-12] MEDS: hydrOXYzine HCL 25 MG TAB PO PRN (22:45)
[2017-03-12] MEDS: HYDROCODONE/APAP (5/325) TAB PO PRN (22:46)
[2017-03-13] MEDS: HYDROmorphONE 2 MG TAB PO PRN ×5 (01:00→20:02)
[2017-03-13 02:00] VITALS: BP 128/68; RESP 18
[2017-03-13] MEDS: ACCU-CHEK XX SCH (02:12)
[2017-03-13] MEDS: GABAPENTIN 400 MG CAP PO SCH ×3 (06:03→22:18)
[2017-03-13 06:48] LABS: BASOPHIL # 0.1 10^3/ul (0.0-0.1); BASOPHILS % 1.1 % (0.0-2.0); EOSINOPHILS # 0.6 10^3/ul (0.0-0.5); EOSINOPHILS % 9.7 % (0.0-7.0); HEMATOCRIT 28.6 % (42.0-52.0); HEMOGLOBIN 9.3 g/dl (14.0-18.0); LYMPHOCYTES # 1.7 10^3/ul (0.8-2.9); LYMPHOCYTES % 30.2 % (15.0-51.0); MEAN CORPUSCULAR HEMOGLOBIN 29.7 pg (29.0-33.0); MEAN CORPUSCULAR HGB CONC 32.5 g/dl (32.0-37.0); MEAN CORPUSCULAR VOLUME 91.4 fl (82.0-101.0); MEAN PLATELET VOLUME 10.8 fl (7.4-10.4); MONOCYTE # 0.7 10^3/ul (0.3-0.9); NEUTROPHIL # 2.6 10^3/ul (1.6-7.5); NEUTROPHILS % 46.3 % (39.0-77.0); PLATELET COUNT 299 10^3/UL (140-415); RED BLOOD COUNT 3.13 10^6/ul (4.70-6.10); RED CELL DISTRIBUTION WIDTH 13.3 % (11.5-14.5); WHITE BLOOD COUNT 5.7 10^3/ul (4.8-10.8)
[2017-03-13 07:27] LABS: CALCIUM 9.1 mg/dl (8.4-10.2); CREATININE 0.7 mg/dl (0.61-1.24); POTASSIUM 4.5 mmol/L (3.5-5.1)
[2017-03-13 07:30] VITALS: BP 124/62; RESP 18
[2017-03-13] MEDS: metFORMIN 500 MG TAB PO SCH ×2 (07:59→17:37)
[2017-03-13] MEDS: BUDESONIDE (NEB) 0.5MG/2ML AMP INH SCH ×2 (08:00→20:00)
[2017-03-13] MEDS: Insulin NOVOLOG SS MILD Algorithm (SS with meals and bedtime) SC SCH ×4 (08:04→21:00)
[2017-03-13] MEDS: HYDROCODONE/APAP (5/325) TAB PO PRN (08:05)
[2017-03-13] MEDS: IPRATROPIUM (NEB) 0.5 MG/2.5 ML AMP INH SCH ×4 (08:13→20:14)
[2017-03-13] MEDS: ALBUTEROL 0.5% (NEB) 2.5 MG/0.5 ML AMP INH SCH ×4 (08:14→20:14)
[2017-03-13] MEDS: ENOXAPARIN 40 MG/0.4 ML SYG SC SCH (08:36)
[2017-03-13] MEDS: METOPROLOL 50 MG TAB PO SCH ×2 (08:36→20:05)
[2017-03-13] MEDS: ESCITALOPRAM 10 MG TAB PO SCH (08:37)
[2017-03-13] MEDS: FAMOTIDINE 20 MG TAB PO SCH ×2 (08:37→20:03)
[2017-03-13] MEDS: NICOTINE (7 MG/24 HR) PATCH TRANSDERM SCH (08:37)
[2017-03-13] MEDS: morphine (ER) 15 MG TAB PO SCH ×3 (08:37→17:37)
[2017-03-13] MEDS: CYANOCOBALAMIN 100 MCG TAB PO SCH (08:38)
[2017-03-13] MEDS: DOCUSATE SODIUM 100 MG CAP PO SCH (08:38)
[2017-03-13] MEDS: ENALAPRIL 5 MG TAB PO SCH ×2 (08:38→20:04)
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
--- NOTE | 2017-03-13 12:34 | CONS ---
Date/Time of Note Date/Time of Note DATE: 03/13/17 TIME: 12:34 Consult Date/Type/Reason Admit Date/Time Mar 03, 2017 at 14:24 Type of Consultation: Internal medicine Objective Vital Signs Date Time Temp Pulse Resp B/P Pulse Ox O2 Delivery O2 Flow Rate FiO2 03/13/17 07:30 98.6 79 18 124/62 92 03/12/17 21:05 21 03/12/17 08:25 Room Air Intake and Output 03/12/17 03/12/17 03/13/17 15:00 23:00 07:00 Intake Total 860 ml 520 ml Output Total 15 ml 560 ml 1200 ml Balance -15 ml 300 ml -680 ml INTERDISCIPLINARY TEAM CONFERENCE BOWEL- Cont BLADDER-Cont SKIN- open wound with wound vac, good granulation tissue OT- DRESSING-mod BATHING-mod TOILETING-mod PT- BED MOBILITY-max TRANSFERS-max W.C. MOBILITY-min A/P- Interdisciplinary team conference held today. Please see interdisciplinary sheet. Working toward d.cVika on 03/24 with post discharge follow up of physical therapy, occupational therapy, and RN for wound care. Results/Medications Result Diagram: 03/13/17 0607 03/13/17 0607 Results 24 hrs Laboratory Tests Test 03/12/17 17:19 03/12/17 20:12 03/13/17 02:09 03/13/17 06:07 Bedside Glucose 186 183 128 White Blood Count 5.7 # Red Blood Count 3.13 L Hemoglobin 9.3 L Hematocrit 28.6 L Mean Corpuscular Volume 91.4 Mean Corpuscular Hemoglobin 29.7 Mean Corpuscular Hemoglobin Concent 32.5 Red Cell Distribution Width 13.3 Platelet Count 299 Mean Platelet Volume 10.8 H Neutrophils % 46.3 Lymphocytes % 30.2 Monocytes % 12.0 H Eosinophils % 9.7 H Basophils % 1.1 Nucleated Red Blood Cells % 0.0 Neutrophils # 2.6 Lymphocytes # 1.7 Monocytes # 0.7 Eosinophils # 0.6 H Basophils # 0.1 Nucleated Red Blood Cells # 0.0 Sodium Level 135 Potassium Level 4.5 Chloride Level 102 Carbon Dioxide Level 28 Anion Gap 10 Blood Urea Nitrogen 12 Creatinine 0.70 Glucose Level 151 Calcium Level 9.1 Test 03/13/17 07:46 Bedside Glucose 171 Medications Current Medications Cyanocobalamin (Vitamin B12) 100 mcg DAILY PO Last administered on 03/13/17 08 :38; Admin Dose 100 MCG; Start 03/03/17 at 16:00 Enoxaparin Sodium (Lovenox) 40 mg DAILY SC Last administered on 03/13/17 08:36 ; Admin Dose 40 MG; Start 03/03/17 at 16:00; Stop 03/16/17 at 09:01 Escitalopram Oxalate (Lexapro) 10 mg DAILY PO Last administered on 03/13/17 08 :37; Admin Dose 10 MG; Start 03/03/17 at 16:00 Famotidine (Pepcid) 20 mg BID PO Last administered on 03/13/17 08:37; Admin Dose 20 MG; Start 03/03/17 at 21:00 Loratadine (Claritin) 10 mg DAILY PRN PO ITCHING/ALLERGIES; Start 03/03/17 at 16 :00 Metoprolol Tartrate (Lopressor) 50 mg BID PO Last administered on 03/13/17 08: 36; Admin Dose 50 MG; Start 03/03/17 at 21:00 Nicotine (Nicoderm 7 Mg/ 24 Hr) 1 patch DAILY TRANSDERM Last administered on 08:37; Admin Dose 1 PATCH; Start 03/03/17 at 16:30 Tamsulosin HCl (Flomax) 0.4 mg DAILY@21 PO Last administered on 03/12/17 20:14 ; Admin Dose 0.4 MG; Start 03/03/17 at 21:00 Enalapril Maleate (Vasotec) 5 mg BID PO Last administered on 03/13/17 08:38; Admin Dose 5 MG; Start 03/03/17 at 21:00 Gabapentin (Neurontin) 400 mg Q8 PO Last administered on 03/13/17 06:03; Admin Dose 400 MG; Start 03/03/17 at 22:00 Ondansetron HCl (Zofran Tab) 4 mg Q6H PRN PO NAUSEA AND/OR VOMITING; Start 03/03 at 16:00 Diagnostic Test (Pha) (Accu-Chek) 1 ea 02 XX Last administered on 03/13/17 02: 12; Admin Dose 1 EA; Start 03/04/17 at 02:00 Miscellaneous Information 1 ea NOTE XX ; Start 03/03/17 at 16:30 Glucose (Glutose) 15 gm Q15M PRN PO DECREASED GLUCOSE; Start 03/03/17 at 16:30 Glucose (Glutose) 22.5 gm Q15M PRN PO DECREASED GLUCOSE; Start 03/03/17 at 16:30 Dextrose (D50w Syringe) 25 ml Q15M PRN [place] DECREASED GLUCOSE; Start 03/03/17 at 16:30 Dextrose (D50w Syringe) 50 ml Q15M PRN IV DECREASED GLUCOSE; Start 03/03/17 at 16:30 Glucagon (Glucagen) 1 mg Q15M PRN IM DECREASED GLUCOSE; Start 03/03/17 at 16:30 Glucose (Glutose) 15 gm Q15M PRN BUCCAL DECREASED GLUCOSE; Start 03/03/17 at 16: 30 Docusate Sodium (Colace) 100 mg DAILY PO Last administered on 03/13/17 08:38; Admin Dose 100 MG; Start 03/04/17 at 09:00 Acetaminophen (Tylenol Tab) 650 mg Q4H PRN PO PAIN AND OR ELEVATED TEMP; Start 03/03/17 at 17:00 Bisacodyl (Dulcolax Supp) 10 mg DAILY PRN [place] CONSTIPATION; Start 03/03/17 at 17: 00 Magnesium Hydroxide (Milk Of Mag) 30 ml BID PRN PO CONSTIPATION; Start 03/03/17 at 17:00 Lactulose (Enulose) 10 gm DAILY PRN PO CONSTIPATION Last administered on 10:35; Admin Dose 10 GM; Start 03/03/17 at 17:00 Hydroxyzine HCl (Atarax) 50 mg HS PRN PO ITCHING Last administered on 22:45; Admin Dose 50 MG; Start 03/04/17 at 12:30 Morphine Sulfate (Ms Contin (Er)) 15 mg 08,, PO Last administered on 08:37; Admin Dose 15 MG; Start 03/11/17 at 12:00 Acetaminophen/ Hydrocodone Bitart ([place] (5/325)) 1 tab Q4H PRN PO PAIN LEVEL 1 -3; Start 03/11/17 at 10:30 Acetaminophen/ Hydrocodone Bitart ([place] (5/325)) 2 tab Q4H PRN PO PAIN LEVEL 4 -7 Last administered on 03/13/17 08:05; Admin Dose 2 TAB; Start 03/11/17 at 10: 30 Hydromorphone HCl (Dilaudid) 1 mg Q4H PRN PO SEVERE PAIN Last administered on 10:00; Admin Dose 1 MG; Start 03/11/17 at 10:30 Senna (Senokot) 1 tab HS PO Last administered on 03/12/17 20:15; Admin Dose 1 TAB; Start 03/11/17 at 21:00 TRAVIS ALMONTE MD Mar 13, 2017 12:34
[2017-03-13 20:00] VITALS: BP 141/67; RESP 18
[2017-03-13] MEDS: SENNA TAB PO SCH (20:03)
[2017-03-13] MEDS: TAMSULOSIN (SR) 0.4 MG CAP PO SCH (20:04)
[2017-03-13] MEDS: FOLIC ACID 1 MG TAB PO SCH (20:12)
[2017-03-13] MEDS: ZINC SULFATE 220 MG CAP PO SCH (22:17)
[2017-03-13] MEDS: ASCORBIC ACID 500 MG TAB PO SCH (22:17)
[2017-03-13] MEDS: hydrOXYzine HCL 25 MG TAB PO PRN (22:21)
[2017-03-14 02:00] VITALS: BP 128/64; RESP 18
[2017-03-14] MEDS: ACCU-CHEK XX SCH (02:00)
[2017-03-14] MEDS: GABAPENTIN 400 MG CAP PO SCH ×3 (06:38→21:16)
[2017-03-14] MEDS: HYDROmorphONE 2 MG TAB PO PRN ×4 (06:38→20:29)
[2017-03-14] MEDS: metFORMIN 500 MG TAB PO SCH ×2 (08:28→17:59)
[2017-03-14] MEDS: IPRATROPIUM (NEB) 0.5 MG/2.5 ML AMP INH SCH ×4 (08:30→21:00)
[2017-03-14] MEDS: ALBUTEROL 0.5% (NEB) 2.5 MG/0.5 ML AMP INH SCH ×4 (08:30→21:00)
[2017-03-14] MEDS: morphine (ER) 15 MG TAB PO SCH ×3 (08:30→18:02)
[2017-03-14] MEDS: BUDESONIDE (NEB) 0.5MG/2ML AMP INH SCH ×2 (08:30→20:00)
[2017-03-14] MEDS: Insulin NOVOLOG SS MILD Algorithm (SS with meals and bedtime) SC SCH ×4 (08:33→20:39)
[2017-03-14 08:53] VITALS: BP 142/74; RESP 18
[2017-03-14 08:55] VITALS: BP_SYST 112; BP_SYST 142; BP_DIAS 69; BP_DIAS 74; RESP 18
[2017-03-14] MEDS: DOCUSATE SODIUM 100 MG CAP PO SCH (09:29)
[2017-03-14] MEDS: FAMOTIDINE 20 MG TAB PO SCH ×2 (09:31→20:26)
[2017-03-14] MEDS: CYANOCOBALAMIN 100 MCG TAB PO SCH (09:31)
[2017-03-14] MEDS: ESCITALOPRAM 10 MG TAB PO SCH (09:31)
[2017-03-14] MEDS: FOLIC ACID 1 MG TAB PO SCH (09:31)
[2017-03-14] MEDS: ASCORBIC ACID 500 MG TAB PO SCH (09:31)
[2017-03-14] MEDS: METOPROLOL 50 MG TAB PO SCH ×2 (09:37→20:28)
[2017-03-14] MEDS: ENALAPRIL 5 MG TAB PO SCH ×2 (09:40→20:29)
[2017-03-14] MEDS: NICOTINE (7 MG/24 HR) PATCH TRANSDERM SCH (09:40)
[2017-03-14] MEDS: ENOXAPARIN 40 MG/0.4 ML SYG SC SCH (09:41)
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
[2017-03-14 20:00] VITALS: BP 129/60; RESP 18
[2017-03-14] MEDS: TAMSULOSIN (SR) 0.4 MG CAP PO SCH (20:26)
[2017-03-14] MEDS: SENNA TAB PO SCH (21:00)
[2017-03-14] MEDS: hydrOXYzine HCL 25 MG TAB PO PRN (21:17)
[2017-03-15 02:00] VITALS: BP 134/67; RESP 18
[2017-03-15] MEDS: ACCU-CHEK XX SCH (02:49)
[2017-03-15] MEDS: HYDROmorphONE 2 MG TAB PO PRN ×5 (04:29→22:40)
[2017-03-15] MEDS: GABAPENTIN 400 MG CAP PO SCH ×3 (06:29→22:03)
[2017-03-15] MEDS: morphine (ER) 15 MG TAB PO SCH ×3 (08:18→17:37)
[2017-03-15] MEDS: NICOTINE (7 MG/24 HR) PATCH TRANSDERM SCH (08:18)
[2017-03-15] MEDS: metFORMIN 500 MG TAB PO SCH ×2 (08:19→17:37)
[2017-03-15] MEDS: ZINC SULFATE 220 MG CAP PO SCH (08:19)
[2017-03-15] MEDS: FAMOTIDINE 20 MG TAB PO SCH ×2 (08:19→20:37)
[2017-03-15] MEDS: DOCUSATE SODIUM 100 MG CAP PO SCH (08:19)
[2017-03-15] MEDS: CYANOCOBALAMIN 100 MCG TAB PO SCH (08:19)
[2017-03-15] MEDS: ESCITALOPRAM 10 MG TAB PO SCH (08:19)
[2017-03-15] MEDS: ASCORBIC ACID 500 MG TAB PO SCH (08:19)
[2017-03-15] MEDS: ENOXAPARIN 40 MG/0.4 ML SYG SC SCH (08:35)
[2017-03-15] MEDS: Insulin NOVOLOG SS MILD Algorithm (SS with meals and bedtime) SC SCH (08:37)
[2017-03-15] MEDS: METOPROLOL 50 MG TAB PO SCH ×2 (09:00→20:39)
[2017-03-15] MEDS: ENALAPRIL 5 MG TAB PO SCH (09:00)
[2017-03-15] MEDS: BUDESONIDE (NEB) 0.5MG/2ML AMP INH SCH ×2 (09:35→20:00)
[2017-03-15] MEDS: ALBUTEROL 0.5% (NEB) 2.5 MG/0.5 ML AMP INH SCH ×4 (09:35→21:00)
[2017-03-15] MEDS: IPRATROPIUM (NEB) 0.5 MG/2.5 ML AMP INH SCH ×4 (09:35→21:00)
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
[2017-03-15] MEDS: INSULIN ASPART [NOVOLOG] 3 ML PEN SC SCH ×3 (12:16→20:44)
[2017-03-15 20:00] VITALS: BP 145/60; RESP 18
[2017-03-15] MEDS: hydrOXYzine HCL 25 MG TAB PO PRN (20:36)
[2017-03-15] MEDS: SENNA TAB PO SCH (20:37)
[2017-03-15] MEDS: TAMSULOSIN (SR) 0.4 MG CAP PO SCH (20:37)
[2017-03-15] MEDS: HYDROCODONE/APAP (5/325) TAB PO PRN (20:37)
[2017-03-16] VITALS (8 sets, daily range): BP systolic 70–125; BP diastolic 44–64; PULSE 84–91; RESP 16–20
[2017-03-16] MEDS ORDERED: ACCU-CHEK XX SCH (02:00)
[2017-03-16] MEDS: ACCU-CHEK XX SCH (02:00)
[2017-03-16] MEDS: GABAPENTIN 400 MG CAP PO SCH ×3 (05:34→21:58)
[2017-03-16] MEDS: HYDROmorphONE 2 MG TAB PO PRN ×4 (05:34→22:06)
[2017-03-16 07:32] LABS: CALCIUM 8.6 mg/dl (8.4-10.2); CREATININE 0.7 mg/dl (0.61-1.24); POTASSIUM 4.1 mmol/L (3.5-5.1)
[2017-03-16] MEDS: BUDESONIDE (NEB) 0.5MG/2ML AMP INH SCH ×2 (07:49→20:45)
[2017-03-16] MEDS: INSULIN ASPART [NOVOLOG] 3 ML PEN SC SCH ×4 (08:40→22:00)
[2017-03-16] MEDS: metFORMIN 500 MG TAB PO SCH ×2 (08:40→17:10)
[2017-03-16] MEDS: ZINC SULFATE 220 MG CAP PO SCH (08:41)
[2017-03-16] MEDS: ENOXAPARIN 40 MG/0.4 ML SYG SC SCH (08:41)
[2017-03-16] MEDS: DOCUSATE SODIUM 100 MG CAP PO SCH (08:41)
[2017-03-16] MEDS: ASCORBIC ACID 500 MG TAB PO SCH (08:42)
[2017-03-16] MEDS: LISINOPRIL 10 MG TAB PO SCH (08:42)
[2017-03-16] MEDS: FAMOTIDINE 20 MG TAB PO SCH ×2 (08:42→21:58)
[2017-03-16] MEDS: METOPROLOL 50 MG TAB PO SCH ×2 (08:42→21:00)
[2017-03-16] MEDS: ESCITALOPRAM 10 MG TAB PO SCH (08:43)
[2017-03-16] MEDS: FOLIC ACID 1 MG TAB PO SCH (08:43)
[2017-03-16] MEDS: HYDROCODONE/APAP (5/325) TAB PO PRN ×2 (08:43→12:44)
[2017-03-16] MEDS: morphine (ER) 15 MG TAB PO SCH ×3 (08:44→17:00)
[2017-03-16] MEDS: IPRATROPIUM (NEB) 0.5 MG/2.5 ML AMP INH SCH ×2 (09:00→13:00)
[2017-03-16] MEDS: ALBUTEROL 0.5% (NEB) 2.5 MG/0.5 ML AMP INH SCH ×2 (09:00→13:00)
[2017-03-16] MEDS: NICOTINE (7 MG/24 HR) PATCH TRANSDERM SCH ×2 (09:00→12:45)
[2017-03-16] MEDS: CYANOCOBALAMIN 100 MCG TAB PO SCH (09:58)
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
[2017-03-16] MEDS ORDERED: ALBUTEROL 0.5% (NEB) 2.5 MG/0.5 ML AMP INH PRN (15:00)
[2017-03-16] MEDS ORDERED: IPRATROPIUM (NEB) 0.5 MG/2.5 ML AMP INH PRN (15:00)
[2017-03-16] MEDS: SENNA TAB PO SCH (21:00)
[2017-03-16] MEDS: TAMSULOSIN (SR) 0.4 MG CAP PO SCH (21:58)
[2017-03-17] MEDS: ACCU-CHEK XX SCH (02:00)
[2017-03-17 02:19] VITALS: BP 124/65; RESP 18
[2017-03-17] MEDS: GABAPENTIN 400 MG CAP PO SCH ×3 (06:27→20:34)
[2017-03-17 07:00] VITALS: BP 129/60; RESP 18
[2017-03-17] MEDS: HYDROmorphONE 2 MG TAB PO PRN ×4 (07:51→22:04)
[2017-03-17] MEDS: BUDESONIDE (NEB) 0.5MG/2ML AMP INH SCH ×2 (08:00→20:00)
[2017-03-17] MEDS: ASCORBIC ACID 500 MG TAB PO SCH (08:25)
[2017-03-17] MEDS: FOLIC ACID 1 MG TAB PO SCH (08:25)
[2017-03-17] MEDS: DOCUSATE SODIUM 100 MG CAP PO SCH (08:25)
[2017-03-17] MEDS: metFORMIN 500 MG TAB PO SCH ×2 (08:25→17:27)
[2017-03-17] MEDS: ESCITALOPRAM 10 MG TAB PO SCH (08:25)
[2017-03-17] MEDS: CYANOCOBALAMIN 100 MCG TAB PO SCH (08:26)
[2017-03-17] MEDS: FAMOTIDINE 20 MG TAB PO SCH ×2 (08:26→20:35)
[2017-03-17] MEDS: morphine (ER) 15 MG TAB PO SCH (08:26)
[2017-03-17] MEDS: ZINC SULFATE 220 MG CAP PO SCH (08:26)
[2017-03-17] MEDS: NICOTINE (7 MG/24 HR) PATCH TRANSDERM SCH ×2 (08:26→08:38)
[2017-03-17] MEDS: INSULIN ASPART [NOVOLOG] 3 ML PEN SC SCH ×4 (08:32→20:38)
[2017-03-17] MEDS: LISINOPRIL 10 MG TAB PO SCH (08:37)
[2017-03-17] MEDS: METOPROLOL 50 MG TAB PO SCH ×2 (08:37→20:38)
[2017-03-17] MEDS: HYDROCODONE/APAP (5/325) TAB PO PRN ×2 (09:42→20:35)
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
[2017-03-17] MEDS ORDERED: oxyCODONE 5 MG TAB PO SCH (13:00)
[2017-03-17] MEDS: oxyCODONE 5 MG TAB PO SCH (17:28)
[2017-03-17 20:00] VITALS: BP 146/67; RESP 18
[2017-03-17] MEDS: TAMSULOSIN (SR) 0.4 MG CAP PO SCH (20:35)
[2017-03-17] MEDS: hydrOXYzine HCL 25 MG TAB PO PRN (20:35)
[2017-03-17] MEDS: SENNA TAB PO SCH ×2 (20:35→20:40)
[2017-03-18 01:14] VITALS: BP 114/63; PULSE 75; RESP 16
[2017-03-18] MEDS: HYDROCODONE/APAP (5/325) TAB PO PRN ×3 (01:15→17:36)
[2017-03-18 02:00] VITALS: BP 135/68; RESP 18
[2017-03-18] MEDS: ACCU-CHEK XX SCH (02:00)
[2017-03-18] MEDS: GABAPENTIN 400 MG CAP PO SCH ×3 (06:08→21:24)
[2017-03-18] MEDS: HYDROmorphONE 2 MG TAB PO PRN (06:09)
[2017-03-18] MEDS: INSULIN ASPART [NOVOLOG] 3 ML PEN SC SCH ×4 (08:02→21:00)
[2017-03-18] MEDS: oxyCODONE 5 MG TAB PO SCH ×3 (08:03→21:29)
[2017-03-18] MEDS: metFORMIN 500 MG TAB PO SCH ×2 (08:03→17:36)
[2017-03-18] MEDS: FOLIC ACID 1 MG TAB PO SCH (08:32)
[2017-03-18] MEDS: CYANOCOBALAMIN 100 MCG TAB PO SCH (08:32)
[2017-03-18] MEDS: LISINOPRIL 10 MG TAB PO SCH (08:33)
[2017-03-18] MEDS: ASCORBIC ACID 500 MG TAB PO SCH (08:33)
[2017-03-18] MEDS: DOCUSATE SODIUM 100 MG CAP PO SCH (08:33)
[2017-03-18] MEDS: ZINC SULFATE 220 MG CAP PO SCH (08:33)
[2017-03-18] MEDS: FAMOTIDINE 20 MG TAB PO SCH ×2 (08:33→21:25)
[2017-03-18] MEDS: ESCITALOPRAM 10 MG TAB PO SCH (08:33)
[2017-03-18] MEDS: METOPROLOL 50 MG TAB PO SCH ×2 (08:34→21:25)
[2017-03-18] MEDS: NICOTINE (7 MG/24 HR) PATCH TRANSDERM SCH (08:34)
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
[2017-03-18] MEDS: BUDESONIDE (NEB) 0.5MG/2ML AMP INH SCH ×2 (13:45→19:57)
[2017-03-18 14:00] VITALS: BP 103/60; RESP 17
[2017-03-18 19:42] VITALS: BP 136/67; RESP 19
[2017-03-18] MEDS: TAMSULOSIN (SR) 0.4 MG CAP PO SCH (21:24)
[2017-03-18] MEDS: hydrOXYzine HCL 25 MG TAB PO PRN (21:24)
[2017-03-18] MEDS: SENNA TAB PO SCH (21:25)
[2017-03-19] MEDS: ACCU-CHEK XX SCH (02:00)
[2017-03-19] MEDS: HYDROCODONE/APAP (5/325) TAB PO PRN ×3 (06:10→20:14)
[2017-03-19] MEDS: GABAPENTIN 400 MG CAP PO SCH ×3 (06:10→22:16)
[2017-03-19 06:16] VITALS: BP 139/67; PULSE 85; RESP 16
[2017-03-19 07:00] VITALS: BP 127/63; RESP 18
[2017-03-19] MEDS: metFORMIN 500 MG TAB PO SCH ×2 (07:57→17:22)
[2017-03-19] MEDS: oxyCODONE 5 MG TAB PO SCH ×3 (07:57→22:16)
[2017-03-19] MEDS: INSULIN ASPART [NOVOLOG] 3 ML PEN SC SCH ×4 (07:58→20:19)
[2017-03-19] MEDS: BUDESONIDE (NEB) 0.5MG/2ML AMP INH SCH ×2 (08:00→20:13)
[2017-03-19] MEDS: CYANOCOBALAMIN 100 MCG TAB PO SCH (08:51)
[2017-03-19] MEDS: FAMOTIDINE 20 MG TAB PO SCH ×2 (08:51→20:13)
[2017-03-19] MEDS: FOLIC ACID 1 MG TAB PO SCH (08:51)
[2017-03-19] MEDS: ESCITALOPRAM 10 MG TAB PO SCH (08:52)
[2017-03-19] MEDS: LISINOPRIL 10 MG TAB PO SCH (08:52)
[2017-03-19] MEDS: ASCORBIC ACID 500 MG TAB PO SCH (08:52)
[2017-03-19] MEDS: METOPROLOL 50 MG TAB PO SCH ×2 (08:52→20:14)
[2017-03-19] MEDS: DOCUSATE SODIUM 100 MG CAP PO SCH (08:52)
[2017-03-19] MEDS: ZINC SULFATE 220 MG CAP PO SCH (08:52)
[2017-03-19] MEDS: NICOTINE (7 MG/24 HR) PATCH TRANSDERM SCH (08:53)
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
[2017-03-19] MEDS: HYDROmorphONE 2 MG TAB PO PRN ×2 (18:15→18:16)
[2017-03-19 20:00] VITALS: BP 134/66; RESP 18
[2017-03-19] MEDS: SENNA TAB PO SCH (20:13)
[2017-03-19] MEDS: TAMSULOSIN (SR) 0.4 MG CAP PO SCH (20:14)
[2017-03-20] MEDS: HYDROmorphONE 2 MG TAB PO PRN ×4 (00:12→20:31)
[2017-03-20] MEDS: hydrOXYzine HCL 25 MG TAB PO PRN ×2 (00:16→22:10)
[2017-03-20] MEDS: ACCU-CHEK XX SCH (01:04)
[2017-03-20 02:00] VITALS: BP 117/63; RESP 18
[2017-03-20] MEDS: HYDROCODONE/APAP (5/325) TAB PO PRN ×3 (02:26→17:46)
[2017-03-20] MEDS: GABAPENTIN 400 MG CAP PO SCH ×3 (06:22→22:10)
[2017-03-20 07:30] VITALS: BP 138/64; RESP 18
[2017-03-20] MEDS: INSULIN ASPART [NOVOLOG] 3 ML PEN SC SCH ×4 (08:40→20:30)
[2017-03-20] MEDS: oxyCODONE 5 MG TAB PO SCH ×3 (08:41→22:10)
[2017-03-20] MEDS: LISINOPRIL 10 MG TAB PO SCH (08:41)
[2017-03-20] MEDS: NICOTINE (7 MG/24 HR) PATCH TRANSDERM SCH (08:41)
[2017-03-20] MEDS: DOCUSATE SODIUM 100 MG CAP PO SCH (08:42)
[2017-03-20] MEDS: ESCITALOPRAM 10 MG TAB PO SCH (08:42)
[2017-03-20] MEDS: FAMOTIDINE 20 MG TAB PO SCH ×2 (08:42→20:29)
[2017-03-20] MEDS: ZINC SULFATE 220 MG CAP PO SCH (08:42)
[2017-03-20] MEDS: METOPROLOL 50 MG TAB PO SCH ×2 (08:42→20:30)
[2017-03-20] MEDS: ASCORBIC ACID 500 MG TAB PO SCH (08:42)
[2017-03-20] MEDS: metFORMIN 500 MG TAB PO SCH ×2 (08:42→17:45)
[2017-03-20] MEDS: FOLIC ACID 1 MG TAB PO SCH (08:42)
[2017-03-20] MEDS: CYANOCOBALAMIN 100 MCG TAB PO SCH (08:43)
[2017-03-20] MEDS: BUDESONIDE (NEB) 0.5MG/2ML AMP INH SCH ×2 (08:55→20:07)
--- NOTE | 2017-03-20 09:37 | CONS ---
Date/Time of Note Date/Time of Note DATE: 03/20/17 TIME: 09:37 Consult Date/Type/Reason Admit Date/Time Mar 03, 2017 at 14:24 Type of Consultation: Internal medicine Objective Vital Signs Date Time Temp Pulse Resp B/P Pulse Ox O2 Delivery O2 Flow Rate FiO2 03/20/17 02:00 98.0 74 18 117/63 94 03/19/17 20:13 21 03/19/17 06:16 Room Air Intake and Output 03/19/17 03/19/17 03/20/17 15:00 23:00 07:00 Intake Total 1200 ml 200 ml Output Total 800 ml 1030 ml Balance 400 ml -830 ml INTERDISCIPLINARY TEAM CONFERENCE BOWEL- Cont BLADDER-Cont SKIN- Lower Extremity wound significantly improved with good clean granular wound bed, which has now grown to cover bone OT- DRESSING-min/mod BATHING-min/mod TOILETING-min/mod PT- BED MOBILITY-sba TRANSFERS-sba AMBULATION-[facility] W.C. MOBILITY-sba 75 feet A/P- Interdisciplinary team conference held today. Please see interdisciplinary sheet. Working toward d.c. to supervised environment with post discharge follow up of physical therapy, occupational therapy and RN. NOLVIA workingwith patient regarding dispo options Results/Medications Result Diagram: 03/16/17 0636 Results 24 hrs Laboratory Tests Test 03/19/17 12:07 03/19/17 17:21 03/19/17 20:19 03/20/17 07:49 Bedside Glucose 194 132 150 143 Medications Current Medications Cyanocobalamin (Vitamin B12) 100 mcg DAILY PO Last administered on 03/20/17 08 :43; Admin Dose 100 MCG; Start 03/03/17 at 16:00 Escitalopram Oxalate (Lexapro) 10 mg DAILY PO Last administered on 03/20/17 08 :42; Admin Dose 10 MG; Start 03/03/17 at 16:00 Famotidine (Pepcid) 20 mg BID PO Last administered on 03/20/17 08:42; Admin Dose 20 MG; Start 03/03/17 at 21:00 Loratadine (Claritin) 10 mg DAILY PRN PO ITCHING/ALLERGIES; Start 03/03/17 at 16 :00 Metoprolol Tartrate (Lopressor) 50 mg BID PO Last administered on 9/25/17at 08: 42; Admin Dose 50 MG; Start 03/03/17 at 21:00 Nicotine (Nicoderm 7 Mg/ 24 Hr) 1 patch DAILY TRANSDERM Last administered on 08:41; Admin Dose 1 PATCH; Start 03/03/17 at 16:30 Tamsulosin HCl (Flomax) 0.4 mg DAILY@21 PO Last administered on 03/19/17 20:14 ; Admin Dose 0.4 MG; Start 03/03/17 at 21:00 Gabapentin (Neurontin) 400 mg Q8 PO Last administered on 03/20/17 06:22; Admin Dose 400 MG; Start 03/03/17 at 22:00 Ondansetron HCl (Zofran Tab) 4 mg Q6H PRN PO NAUSEA AND/OR VOMITING; Start 03/03 at 16:00 Miscellaneous Information 1 ea NOTE XX ; Start 03/03/17 at 16:30 Glucose (Glutose) 15 gm Q15M PRN PO DECREASED GLUCOSE; Start 03/03/17 at 16:30 Glucose (Glutose) 22.5 gm Q15M PRN PO DECREASED GLUCOSE; Start 03/03/17 at 16:30 Dextrose (D50w Syringe) 25 ml Q15M PRN IV DECREASED GLUCOSE; Start 03/03/17 at 16:30 Dextrose (D50w Syringe) 50 ml Q15M PRN IV DECREASED GLUCOSE; Start 03/03/17 at 16:30 Glucagon (Glucagen) 1 mg Q15M PRN IM DECREASED GLUCOSE; Start 03/03/17 at 16:30 Glucose (Glutose) 15 gm Q15M PRN BUCCAL DECREASED GLUCOSE; Start 03/03/17 at 16: 30 Docusate Sodium (Colace) 100 mg DAILY PO Last administered on 03/20/17 08:42; Admin Dose 100 MG; Start 03/04/17 at 09:00 Acetaminophen (Tylenol Tab) 650 mg Q4H PRN PO PAIN AND OR ELEVATED TEMP; Start 03/03/17 at 17:00 Bisacodyl (Dulcolax Supp) 10 mg DAILY PRN [place] CONSTIPATION; Start 03/03/17 at 17: 00 Magnesium Hydroxide (Milk Of Mag) 30 ml BID PRN PO CONSTIPATION; Start 03/03/17 at 17:00 Lactulose (Enulose) 10 gm DAILY PRN PO CONSTIPATION Last administered on 10:35; Admin Dose 10 GM; Start 03/03/17 at 17:00 Hydroxyzine HCl (Atarax) 50 mg HS PRN PO ITCHING Last administered on 00:16; Admin Dose 50 MG; Start 03/04/17 at 12:30 Acetaminophen/ Hydrocodone Bitart ([place] (5/325)) 1 tab Q4H PRN PO PAIN LEVEL 1 -3; Start 03/11/17 at 10:30 Acetaminophen/ Hydrocodone Bitart ([place] (5/325)) 2 tab Q4H PRN PO PAIN LEVEL 4 -7 Last administered on 03/20/17 02:26; Admin Dose 2 TAB; Start 03/11/17 at 10: 30 Hydromorphone HCl (Dilaudid) 1 mg Q4H PRN PO SEVERE PAIN Last administered on 09:14; Admin Dose 1 MG; Start 03/11/17 at 10:30 Senna (Senokot) 1 tab HS PO Last administered on 03/18/17 21:25; Admin Dose 1 TAB; Start 03/11/17 at 21:00 Ascorbic Acid (Vitamin C) 500 mg DAILY PO Last administered on 03/20/17 08:42 ; Admin Dose 500 MG; Start 03/13/17 at 21:00 Folic Acid (Folic Acid) 1 mg DAILY PO Last administered on 03/20/17 08:42; Admin Dose 1 MG; Start 03/13/17 at 21:00 Zinc Sulfate (Zinc Sulfate) 220 mg DAILY PO Last administered on 03/20/17 08: 42; Admin Dose 220 MG; Start 03/13/17 at 21:00 Diagnostic Test (Pha) (Accu-Chek) 1 ea 02 XX ; Start 03/16/17 at 02:00 Lisinopril (Zestril) 10 mg DAILY PO Last administered on 03/20/17 08:41; Admin Dose 10 MG; Start 03/16/17 at 09:00 Hydromorphone HCl (Dilaudid) 2 mg Q4H PRN PO SEVERE PAIN LEVEL 7-10 Last administered on 03/20/17 04:12; Admin Dose 2 MG; Start 03/15/17 at 11:30 Oxycodone HCl (Roxicodone) 5 mg 08,12 PO Last administered on 03/20/17 08:41; Admin Dose 5 MG; Start 03/18/17 at 12:00 Oxycodone HCl (Roxicodone) 10 mg 22 PO Last administered on 03/19/17 22:16; Admin Dose 10 MG; Start 03/18/17 at 22:00 TRAVIS ALMONTE MD Mar 20, 2017 09:37 TRAVIS ALMONTE MD Mar 20, 2017 09:37
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
[2017-03-20 20:00] VITALS: BP 123/64; RESP 18
[2017-03-20] MEDS: SENNA TAB PO SCH (20:29)
[2017-03-20] MEDS: TAMSULOSIN (SR) 0.4 MG CAP PO SCH (20:29)
[2017-03-21] MEDS: HYDROCODONE/APAP (5/325) TAB PO PRN ×3 (00:21→17:35)
[2017-03-21 02:00] VITALS: BP 131/73; RESP 18
[2017-03-21] MEDS: ACCU-CHEK XX SCH (02:00)
[2017-03-21] MEDS: HYDROmorphONE 2 MG TAB PO PRN ×4 (04:07→20:13)
[2017-03-21] MEDS: GABAPENTIN 400 MG CAP PO SCH ×3 (06:27→22:09)
[2017-03-21 07:00] VITALS: BP 127/63; RESP 18
[2017-03-21 08:00] VITALS: BP 127/63; PULSE 68; RESP 20
[2017-03-21] MEDS: BUDESONIDE (NEB) 0.5MG/2ML AMP INH SCH ×2 (08:00→20:08)
[2017-03-21] MEDS: ZINC SULFATE 220 MG CAP PO SCH (08:16)
[2017-03-21] MEDS: LISINOPRIL 10 MG TAB PO SCH (08:16)
[2017-03-21] MEDS: oxyCODONE 5 MG TAB PO SCH ×3 (08:17→22:10)
[2017-03-21] MEDS: DOCUSATE SODIUM 100 MG CAP PO SCH (08:17)
[2017-03-21] MEDS: CYANOCOBALAMIN 100 MCG TAB PO SCH (08:17)
[2017-03-21] MEDS: FOLIC ACID 1 MG TAB PO SCH (08:17)
[2017-03-21] MEDS: ASCORBIC ACID 500 MG TAB PO SCH (08:17)
[2017-03-21] MEDS: metFORMIN 500 MG TAB PO SCH (08:17)
[2017-03-21] MEDS: FAMOTIDINE 20 MG TAB PO SCH ×2 (08:17→20:12)
[2017-03-21] MEDS: ESCITALOPRAM 10 MG TAB PO SCH (08:17)
[2017-03-21] MEDS: NICOTINE (7 MG/24 HR) PATCH TRANSDERM SCH (08:18)
[2017-03-21] MEDS: INSULIN ASPART [NOVOLOG] 3 ML PEN SC SCH ×4 (08:25→20:23)
[2017-03-21] MEDS: METOPROLOL 50 MG TAB PO SCH ×2 (10:30→20:12)
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
[2017-03-21] MEDS: LINAGLIPTIN 5 MG TABLET PO SCH (15:36)
[2017-03-21] MEDS: metFORMIN 850 MG TAB PO SCH (17:34)
[2017-03-21 20:00] VITALS: BP 125/65; RESP 18
[2017-03-21] MEDS: TAMSULOSIN (SR) 0.4 MG CAP PO SCH (20:11)
[2017-03-21] MEDS: SENNA TAB PO SCH (20:17)
[2017-03-22] MEDS: hydrOXYzine HCL 25 MG TAB PO PRN (00:01)
[2017-03-22] MEDS: HYDROCODONE/APAP (5/325) TAB PO PRN ×3 (00:02→13:27)
[2017-03-22] MEDS: ACCU-CHEK XX SCH (02:00)
[2017-03-22] MEDS: HYDROmorphONE 2 MG TAB PO PRN ×3 (04:11→14:51)
[2017-03-22] MEDS: GABAPENTIN 400 MG CAP PO SCH ×2 (06:15→14:13)
[2017-03-22 07:03] VITALS: BP 123/64; PULSE 78; RESP 20
[2017-03-22] MEDS: INSULIN ASPART [NOVOLOG] 3 ML PEN SC SCH ×2 (07:35→12:17)
[2017-03-22 08:09] VITALS: BP 123/64; RESP 20
[2017-03-22] MEDS: ASCORBIC ACID 500 MG TAB PO SCH (08:22)
[2017-03-22] MEDS: FAMOTIDINE 20 MG TAB PO SCH (08:22)
[2017-03-22] MEDS: ZINC SULFATE 220 MG CAP PO SCH (08:22)
[2017-03-22] MEDS: DOCUSATE SODIUM 100 MG CAP PO SCH (08:22)
[2017-03-22] MEDS: oxyCODONE 5 MG TAB PO SCH ×2 (08:22→12:27)
[2017-03-22] MEDS: LINAGLIPTIN 5 MG TABLET PO SCH (08:22)
[2017-03-22] MEDS: CYANOCOBALAMIN 100 MCG TAB PO SCH (08:22)
[2017-03-22] MEDS: metFORMIN 850 MG TAB PO SCH (08:22)
[2017-03-22] MEDS: NICOTINE (7 MG/24 HR) PATCH TRANSDERM SCH (08:23)
[2017-03-22] MEDS: FOLIC ACID 1 MG TAB PO SCH (08:23)
[2017-03-22] MEDS: ESCITALOPRAM 10 MG TAB PO SCH (08:23)
[2017-03-22] MEDS: LISINOPRIL 10 MG TAB PO SCH (08:31)
[2017-03-22] MEDS: METOPROLOL 50 MG TAB PO SCH (08:32)
[2017-03-22] MEDS: BUDESONIDE (NEB) 0.5MG/2ML AMP INH SCH (08:33)
[2017-03-22] MEDS ORDERED: COLLAGENASE 30 GM TUBE TOP SCH (10:00)
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
== END 2017-03-22 16:12 | DRG 561 ==
LOC: VRC 14:24
PROVIDERS: ADMIT Physical Medicine & Rehabilitation; ATTEND Internal Medicine Pulmonary Disease
PROC: F07Z5ZZ Bed Mobility Treatment (ICD-10-PCS; principal; 2017-03-03)
PROC: F08Z2ZZ Grooming/Personal Hygiene Treatment (ICD-10-PCS; 2017-03-03)
DX: S82.141D Displaced bicondylar fracture of right tibia, subsequent encounter for closed fracture with routine healing (principal); S22.32XD Fracture of one rib, left side, subsequent encounter for fracture with routine healing; S82.401D Unspecified fracture of shaft of right fibula, subsequent encounter for closed fracture with routine healing; S43.004D Unspecified dislocation of right shoulder joint, subsequent encounter; B19.20 Unspecified viral hepatitis C without hepatic coma; E11.65 Type 2 diabetes mellitus with hyperglycemia; I10 Essential (primary) hypertension; G89.18 Other acute postprocedural pain; I73.9 Peripheral vascular disease, unspecified; Z79.4 Long term (current) use of insulin; Z96.611 Presence of right artificial shoulder joint; V49.9XXD Car occupant (driver) (passenger) injured in unspecified traffic accident, subsequent encounter
CPT/HCPCS: 80048; 80053; 81001; 82962; 83036; 85025; 87081; 87086; 94640; 97110; 97112; 97150; 97163; 97166; 97530; 97535; 97542; A4310; J1170; J1650; J1815; J3420

== ENCOUNTER 2018-12-13 09:30 | Inpatient (IN) | payer OTHER ==
[~2018-12-13] VITALS: Ht 185.4 cm; Wt 81.9 kg
[~2018-12-13 09:30] MED LIST changes: +HYDR-4011 PO; -HYDR-906 PO
[2018-12-25 15:49] VITALS: BMI 26.5
[2019-01-03] VITALS (37 sets, daily range): BP systolic 84–152; BP diastolic 42–74; PULSE 88–109; RESP 16–28; Ht 185.4 cm; Wt 81.9 kg
[2019-01-03] MEDS ORDERED: GABAPENTIN 300 MG CAP PO ONE (06:00)
[2019-01-03] MEDS ORDERED: TRANEXAMIC ACID 1GM/100ML(PMX) 100 ML IVPB ONE ×2 (06:00→12:00)
[2019-01-03] MEDS ORDERED: DEXAMETHASONE 1 MG TAB PO ONE (06:00)
[2019-01-03] MEDS ORDERED: VANCOMYCIN 1 GM (PMX) 250 ML IVPB ONE (06:00)
[2019-01-03] MEDS ORDERED: BUPIVACAINE 0.5% (SDV) 30 ML, morphine SULFATE (PF) 8 MG, EPINEPHrine 0.3 MG, KETOROLAC... IRR SCH ×7 (06:00)
--- NOTE | 2019-01-03 06:00 | HPN ---
Date/Time of Note Date/Time of Note DATE: 01/03/19 TIME: 06:00 Interval H&P Admission Note Pt. seen H&P reviewed: No system changes ELIZABETH ENRIQUEZ MD Jan 03, 2019 06:00
--- NOTE | 2019-01-03 06:06 | OPR ---
Date/Time of Note Date/Time of Note DATE: 01/03/19 TIME: 06:00 Operative Report Procedure Date: Jan 03, 2019 Preoperative Diagnosis 1. Failed shoulder partial replacement, right Postoperative Diagnosis 1. 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 Right shoulder massive, unrepairable rotator cuff tear Operation/Procedure Performed 1. Right shoulder conversion of partial shoulder replacement to reverse total shoulder replacement Surgeon see signature line Car Dryer Kevin Moreno MD Anesthesia Type: general Estimated Blood Loss: 100 - 150 ml's Transfusion none Specimen None Grafts/Implants See op note Complications none Pt Condition Post Procedure: stable Disposition: PACU Procedure Description ADVERTISING ACCOUNT EXECUTIVE SURGEON: Kevin Moreno MD was asked to be present for this case at my request. Assistance was necessary as a result of the highly technical nature of this operation. When performing an open total shoulder replacement, it is critical to have a trained catering assistant who is an expert in handling the extremity and assisting the surgeon in tasks such as manipulation of the arm, protection of the neurovascular structures and positioning the implants. This assistance cannot be performed by a certified technician specialist, as it is considered an integral part of the procedure and the catering assistant should be compensated for their time. PROCEDURE IN DETAIL: Following the administration of general anesthesia supplemented with a peripheral nerve block for postoperative pain control, the patient was examined under anesthesia. Examination of the right shoulder revealed that the incision from the prior procedure was well-healed. There was a significant anterior superior subluxation that was noted. His passive motion was limited to approximately 90 degrees of forward flexion with 80 degrees of abduction. External rotation was 45 degrees. There was significant escape with anterior superior positioning of the head. The patient was then placed in the beach chair position. Sterile prep and drape was then undertaken. An extended deltopectoral incision was then carried through the interval exposing the conjoined tendon and retracting it medially. There was severe scarring of the approach. The deltoid was significantly atrophic anteriorly. The deltoid was scarred to the conjoined tendon very significantly. And scar tissue was encountered from these prior surgical procedure. The subscapularis was noted to be completely disrupted and the humeral head was then noted to be in an anterior superior position and subluxated through the significant tear of the supraspinatus. Severe arthritic changes were noted with very large peripheral osteophytes, especially inferiorly. The superior rotator cuff was torn and retracted. The biceps tendon was absent. The previously placed humeral component was then removed. It appeared that the head component had settled. It had been fixated with a portion of cement anteriorly and laterally. A humeral head osteotomy was then created in the appropriate degree of version and inclination. The humerus was retracted and the glenoid was exposed. Peripheral osteophytes were removed and a complete capsulectomy performed. The central canal of the glenoid was then entered and prepared for a standard Depuy baseplate. A standard Depuy baseplate was then applied with four peripheral screws and solid fixation. Prior to implantation, a portion of the PRP solution was placed in the glenoid central peg entry point. A 38 mm glenosphere was then applied, with solid fixation. This had 4 mm of offset. The humerus was then reamed and prepared for a 12 mm humeral component with a standard metaphyseal component and a 9 mm liner. The actual components were implanted with solid fixation. The arm was taken through full range of motion with no evident instability. The joint was then thoroughly irrigated, the deep tissues were approximated using #1 suture followed by closure of the deep layer using 2-0 Monocryl. The skin was closed using 4-0 Monocryl suture, and a Prenio dressing. An Ultrasling was then applied. The patient was awakened and transported to the recovery room in stable condition. Estimated blood loss for this procedure was 150 cc. Radiographs will be obtained in the recovery room. ELIZABETH ENRIQUEZ MD Jan 03, 2019 06:06
[2019-01-03] MEDS ORDERED: SUCCINYLCHOLINE CHLORIDE 100 MG/5 ML SYG IV ONE (07:54)
[2019-01-03] MEDS ORDERED: LIDOCAINE 2% (SDV) 5 ML INJ ONE (07:54)
[2019-01-03] MEDS ORDERED: ROCURONIUM 50 MG INJ ONE (07:54)
[2019-01-03] MEDS ORDERED: CEFAZOLIN 1 GM INJ ONE (07:54)
[2019-01-03] MEDS ORDERED: PROPOFOL 20 ML ONE (07:54)
[2019-01-03] MEDS ORDERED: TRANEXAMIC ACID 1GM/100ML(PMX) 100 ML ONE (07:54)
[2019-01-03] MEDS ORDERED: ROPIVACAINE 0.5 % 30 ML VIAL ONE (07:55)
[2019-01-03] MEDS ORDERED: METO-429 PO (08:21)
[2019-01-03] MEDS ORDERED: DOXY100T20 PO (08:21)
[2019-01-03] MEDS ORDERED: FURO20TA3 PO (08:22)
[2019-01-03] MEDS ORDERED: SIMV10TA PO (08:22)
[2019-01-03] MEDS ORDERED: FLOV220 INHALATION (08:23)
[2019-01-03] MEDS ORDERED: ASPI81TA52 PO (08:23)
[2019-01-03] MEDS ORDERED: ESCI20TA PO (08:24)
[2019-01-03] MEDS ORDERED: METF100010 PO (08:24)
[2019-01-03] MEDS ORDERED: IPRA4AER INHALATION (08:25)
[2019-01-03] MEDS ORDERED: TRA100 PO (08:25)
[2019-01-03] MEDS ORDERED: ALBU8.5H8 INH (08:26)
[2019-01-03] MEDS ORDERED: IPRA3AMP29 INHALATION (08:26)
[2019-01-03] MEDS ORDERED: ARIP5TAB14 PO (08:27)
[2019-01-03] MEDS ORDERED: DIGO250T PO (08:28)
[2019-01-03] MEDS ORDERED: ENAL10TA PO (08:28)
[2019-01-03] MEDS ORDERED: FLUT1BLS3 IH (08:31)
--- NOTE | 2019-01-03 09:26 | PREAC ---
Date/Time of Note Date/Time of Note DATE: 01/03/19 TIME: 09:16 Anesthesia Eval and Record Evaluation Time Pre-Procedure Interview DATE: 01/03/19 TIME: 09:16 Age 63 Sex male NPO: 8 hrs Preoperative diagnosis Rotator cuff tear, failed total shoulder replacement, right shoulder Planned procedure Open revision of right partial shoulder replacement vs right reverse total shoulder replacement Past Medical History Past Medical History: Includes Cardio: HTN, Dyslipidemia Endo: Diabetes Pulm: COPD, Asthma Psych: Bipolar Surgery & Anesthesia Issues No known issue Meds Anticoagulation: No Beta Bradley within 24 hr: Yes Reported Medications Fluticasone/Umeclidin/Vilanter (Trelegy Ellipta 100-62.5-25) 1 Each Blst.w.dev, 1 EACH IH DAILY 01/03/19 Digoxin* (Digitek*) 250 Mcg Tablet, 0.25 MG PO DAILY, TAB 01/03/19 Enalapril Maleate* (Enalapril Maleate*) 10 Mg Tablet, 10 MG PO DAILY, TAB 01/03/19 Aripiprazole* (Abilify*) 5 Mg Tab, 5 MG PO DAILY, #30 TAB 01/03/19 Ipratropium-Albuterol (Ipratropium-Albuterol) 0.5-3 Mg/3 Ml Ampul.neb, 3 ML INHA LATION Q6 PRN for WHEEZING AND SOB, #30 VIAL 01/03/19 Albuterol Sulfate* (Proair HFA*) 8.5 Gm Hfa.aer.ad, 2 PUFF INH Q4H PRN for WHEEZING AND SOB, #1 INHALER 01/03/19 Trazodone Hcl* (Trazodone Hcl*) 100 Mg Tablet, 100 MG PO QHS PRN for SLEEP, #30 TAB 01/03/19 Albuterol/Ipratropium* (Combivent Respimat*) 20-100 Mcg/Inh - 4 Gm Aer.w.adap, 2 PUFF INHALATION QID, #1 INHALER 01/03/19 Escitalopram Oxalate* (Lexapro*) 20 Mg Tablet, 20 MG PO DAILY, #30 TAB 01/03/19 Metformin Hcl* (Metformin Hcl*) 1,000 Mg Tablet, 1000 MG PO WITH BREAKFAST DINNE, #60 TAB 01/03/19 Fluticasone Propionate* (Flovent* HFA 220) 12 Gm Inha, 1 PUFF INHALATION BID, #1 INHALER 01/03/19 Aspirin (Low Dose Aspirin) 81 Mg Tablet.dr, 81 MG PO DAILY, #30 TAB 01/03/19 Simvastatin* (Zocor*) 10 Mg Tablet, 10 MG PO QHS, #30 TAB 01/03/19 Furosemide* (Furosemide*) 20 Mg Tablet, 20 MG PO DAILY, #60 TAB 01/03/19 Metoprolol Tartrate* (Lopressor*) 50 Mg Tab, 50 MG PO BID, #60 TAB 01/03/19 Doxycycline Hyclate* (Doxycycline Hyclate*) 100 Mg Tablet.dr, 100 MG PO BID, TAB STARTED 09-01-18 FOR 5 DAYS 01/03/19 Discontinued Reported Medications Metformin* (Glucophage*) 850 Mg Tablet, 850 MG PO WITH BREAKFAST DINNE, #30 TAB 08/24/16 Enalapril Maleate* (Enalapril Maleate*) 10 Mg Tablet, 10 MG PO BID, TAB 08/24/16 Discontinued Scripts Hydrocodone/Acetaminophen ([place] 5-325 Tablet) 1 Each Tablet, 1 TAB PO Q6H PRN for PAIN, #20 TAB Prov:YON,[place] 08/27/16 Current Medications Bupivacaine HCl/ Morphine Sulfate/ Epinephrine/ Ketorolac Tromethamine/ Clonidine/Sodium Chloride/ Vancomycin HCl INTRA-OP IRR ; Start 01/03/19 at 06:00; Stop 01/03/19 at 15:00 Lactated Ringer's 1,000 ml @ 25 mls/hr Q24H IV ; Start 01/03/19 at 09:30 Meds reviewed: Yes Allergies Coded Allergies: Penicillins (Verified Allergy, Severe, RASH, 01/03/19) PER PT Allergies Reviewed: Yes Labs/Studies Labs Reviewed: Reviewed by anesthesiologist test: N/A Pre-procedure Exam Last vitals Vital Signs Date Temp Pulse Resp B/P (MAP) Pulse Ox O2 O2 Flow FiO2 Time Delivery Rate 01/03/19 98.0 109 16 152/57 90 Room Air 3.0 07:30 (88) Nasal Cannula Airway: Adequate mouth opening Mallampati: Mallampati I Teeth: Abnormal (Full denture) Lung: Normal Heart: Normal ASA Physical Status ASA physical status: 3 Emergency: None Planned Anesthetic General/MAC: ETT, LMA Planned Pain Management Single shot nerve block, Parenteral pain med Pre-operative Attestations Prior to commencing anesthesia and surgery, the patient was re-evaluated, there was verification of: *The patient's identity *The results of appropriate recent lab work and preoperative vital signs *The above evaluation not changing prior to induction *Anesthetic plan, risk benefits, alternative and complications discussed with patient/family; questions answered; patient/family understands, accepts and wish es to proceed. BRISEYDA MENDEZ MD Jan 03, 2019 09:26
[2019-01-03] MEDS ORDERED: LACTATED RINGER'S 1,000 ML IV SCH ×2 (09:30→11:54)
[2019-01-03] MEDS ORDERED: MIDAZOLAM 1 MG/ML 2 ML INJ ONE (10:07)
[2019-01-03] MEDS ORDERED: PHENYLephrine (100 MCG/ML) 10ML SYG ONE (11:26)
[2019-01-03] MEDS ORDERED: EPHEDrine 25 MG/5 ML SYG ONE (11:35)
[2019-01-03] MEDS ORDERED: NEOSTIGMINE 3 MG/3 ML SYRINGE ONE (11:36)
[2019-01-03] MEDS ORDERED: GLYCOPYRROLATE 0.4 MG INJ ONE (11:36)
--- NOTE | 2019-01-03 11:54 | PDOCDIS ---
Discharge Instructions DIAGNOSIS Discharge Diagnosis Rotator cuff tear arthropathy CONDITION [id number] Patient Condition: [id number] Good HOME CARE INSTRUCTIONS: [id number] Diet Instructions: Guodg0g Regular ACTIVITY: [id number] Activity Restrictions: [id number] Slowly Increase Activity [id number] Bathing Restrictions: [id number] Shower FOLLOW UP/APPOINTMENTS Follow-up Plan 2 weeks in the office SCHOOL/WORK RELEASE May return to School/Work with: With Restrictions School/Work Release Comment: 5 pound tabletop usage for 6 weeks ELIZABETH ENRIQUEZ MD Jan 03, 2019 11:54
[2019-01-03] MEDS ORDERED: hydrALAzine 20 MG INJ IV PRN (12:00)
[2019-01-03] MEDS ORDERED: KETOROLAC 15 MG INJ IV PRN (12:00)
[2019-01-03] MEDS ORDERED: FENTAnyl 50 MCG/ML VIAL IV PRN ×3 (12:00)
[2019-01-03] MEDS ORDERED: NACL 0.9% 3 ML SYG IV SCH (12:00)
[2019-01-03] MEDS ORDERED: MEPERIDINE 25 MG INJ IV PRN (12:00)
[2019-01-03] MEDS ORDERED: ALBUTEROL HFA 8 GM INHALER INH PRN (12:00)
[2019-01-03] MEDS ORDERED: ALBUTEROL/IPRATROPIUM (NEB) 3 ML AMP INH PRN (12:00)
[2019-01-03] MEDS ORDERED: LABETALOL HCL 20MG INJ IV PRN (12:00)
[2019-01-03] MEDS ORDERED: ZOLPIDEM 5 MG TAB PO PRN (12:00)
[2019-01-03] MEDS ORDERED: oxyCODONE 5 MG TAB PO PRN ×2 (12:00)
[2019-01-03] MEDS ORDERED: OXYCODONE/ACETAMINOPHEN (5/325) TAB PO PRN ×2 (12:00)
[2019-01-03] MEDS ORDERED: HYDROmorphONE 1 MG/ML SYG IV PRN (12:00)
[2019-01-03] MEDS ORDERED: HYDROmorphONE 1 MG/5 ML IV SYRINGE IV PRN ×3 (12:00)
[2019-01-03] MEDS ORDERED: LOPERAMIDE 2 MG CAP PO PRN (12:00)
[2019-01-03] MEDS ORDERED: DIPHENHYDRAMINE 50 MG INJ IV PRN ×2 (12:00)
[2019-01-03] MEDS ORDERED: traZODone 100 MG TAB PO PRN (12:00)
[2019-01-03] MEDS ORDERED: EPHEDrine 25 MG/5 ML SYG IV PRN (12:00)
[2019-01-03] MEDS ORDERED: MAGNESIUM HYDROXIDE 30ML CUP PO PRN (12:00)
[2019-01-03] MEDS ORDERED: METOCLOPRAMIDE 10 MG INJ IV PRN (12:00)
[2019-01-03] MEDS ORDERED: ONDANSETRON 4 MG INJ IV PRN ×2 (12:00)
[2019-01-03] MEDS ORDERED: MIDAZOLAM 1 MG/ML 2 ML INJ IV PRN (12:00)
[2019-01-03] MEDS: ACETAMINOPHEN 500 MG TAB PO SCH ×2 (12:57→17:41)
[2019-01-03] MEDS: DEXAMETHASONE 2 MG TAB PO SCH ×2 (12:59→17:41)
[2019-01-03] MEDS ORDERED: NON-FORMULARY/PATIENT OWN MED (Albuterol/Ipratropium* (Combivent Respimat*) 2 PUFF) INHALATION SCH (13:00)
--- NOTE | 2019-01-03 15:40 | PAC ---
Date/Time of Note Date/Time of Note DATE: 01/03/19 TIME: 15:39 Post-Anesthesia Notes Post-Anesthesia Note Last documented vital signs Vital Signs Date Temp Pulse Resp B/P (MAP) Pulse Ox O2 O2 Flow FiO2 Time Delivery Rate 01/03/19 90 23 92/51 (65) 94 Nasal 2.0 14:38 Cannula 01/03/19 98.6 12:34 Activity: WNL Respiratory function: WNL Cardiovascular function: WNL Mental status: Baseline Pain reasonably controlled: Yes Hydration appropriate: Yes Nausea/Vomiting absent: Yes Comments BT: 98.6 BRISEYDA MENDEZ MD Jan 03, 2019 15:40
[2019-01-03] MEDS: metFORMIN 500 MG TAB PO SCH (17:42)
[2019-01-03] MEDS: SENNA/DOCUSATE NA (8.6MG/50MG) TAB PO SCH (20:15)
[2019-01-03] MEDS: METOPROLOL 50 MG TAB PO SCH (20:17)
[2019-01-03] MEDS: MOMETASONE 0.24 GM INHALER INH SCH (20:26)
[2019-01-03] MEDS ORDERED: ATORVASTATIN 10 MG TAB PO SCH (21:00)
[2019-01-03] MEDS ORDERED: GABAPENTIN 300 MG CAP PO SCH (21:00)
[2019-01-03] MEDS: VANCOMYCIN 500 MG (PMX) 100 ML IVPB SCH (21:28)
[2019-01-03] MEDS: oxyCODONE 5 MG TAB PO PRN (21:34)
[2019-01-04] MEDS: ACETAMINOPHEN 500 MG TAB PO SCH ×2 (00:01→06:11)
[2019-01-04 00:37] VITALS: BP 131/60; PULSE 78; RESP 18
[2019-01-04 04:40] VITALS: BP 155/68; PULSE 75; RESP 20
[2019-01-04] MEDS: DEXAMETHASONE 2 MG TAB PO SCH ×2 (06:12)
--- NOTE | 2019-01-04 06:26 | PN ---
Date/Time of Note Date/Time of Note DATE: 01/04/19 TIME: 06:25 Subjective Awake and alert. Mild pain. Objective Vitals Vital Signs Date Temp Pulse Resp B/P (MAP) Pulse Ox O2 O2 Flow FiO2 Time Delivery Rate 01/04/19 97.8 75 20 155/68 97 Nasal 2.0 04:40 (97) Cannula Intake and Output 01/03/19 01/03/19 01/04/19 1515:00 23:00 07:00 IntakeIntake Total 850 ml 593 ml 540 ml OutputOutput Total 50 ml 550 ml 480 ml BalanceBalance 800 ml 43 ml 60 ml Wound clean and dry. Neurologically intact. No signs of DVT. Medications Medications Current Medications Lactated Ringer's 1,000 ml @ 25 mls/hr Q24H IV ; Start 01/03/19 at 09:30 Albuterol (Ventolin Hfa) 2 puff Q4H RESP THERAPY PRN INH WHEEZING AND SOB; Start 01/03/19 at 12:00 Aripiprazole (Abilify) 5 mg DAILY PO ; Start 01/04/19 at 09:00 Digoxin (Digoxin) 0.25 mg DAILY@1300 PO ; Start 01/04/19 at 13:00 Enalapril Maleate (Vasotec) 10 mg DAILY PO ; Start 01/04/19 at 09:00 Escitalopram Oxalate (Lexapro) 20 mg DAILY PO ; Start 01/04/19 at 09:00 Furosemide (Lasix) 20 mg DAILY PO ; Start 01/04/19 at 09:00 Albuterol/ Ipratropium (Duoneb) 3 ml Q6H RESP THERAPY PRN INH WHEEZING AND SOB; Start 01/03/19 at 12:00 Metformin HCl (Glucophage) 1,000 mg WITH BREAKFAST DINNE PO Last administered on 01/03/19at 17:42; Admin Dose 1,000 MG; Start 01/03/19 at 17:55 Metoprolol Tartrate (Lopressor) 50 mg BID PO Last administered on 01/03/19at 20:17; Admin Dose 50 MG; Start 01/03/19 at 21:00 Trazodone HCl (Desyrel) 100 mg QHS PRN PO SLEEP; Start 01/03/19 at 12:00 Miscellaneous Information 2 puff QID INHALATION ; Start 01/03/19 at 13:00; Status UNV Mometasone Furoate (Asmanex) 1 puff BID INH Last administered on 01/03/19at 20:26; Admin Dose 1 PUFF; Start 01/03/19 at 21:00 Miscellaneous Information 1 each DAILY IH ; Start 01/04/19 at 09:00; Status UNV Atorvastatin Calcium (Lipitor) 10 mg DAILY@21 PO Last administered on 01/03/19at 20:16; Admin Dose 10 MG; Start 01/03/19 at 21:00 Lactated Ringer's 1,000 ml @ 30 mls/hr Q24H IV Last administered on 01/03/19at 17:13; Admin Dose 30 MLS/HR; Start 01/03/19 at 11:54 Vancomycin HCl 100 ml @ 100 mls/hr Q12H IVPB Last administered on 01/03/19 21:28; Admin Dose 100 MLS/HR; Start 01/03/19 at 20:30; Stop 01/04/19 at 09:29 Senna/Docusate Sodium (Senokot-S) 1 tab BID PO Last administered on 01/03/19at 20:15; Admin Dose 1 TAB; Start 01/03/19 at 21:00 Simethicone (Mylicon) 80 mg TID PRN PO .GAS; Start 01/03/19 at 12:00 Magnesium Hydroxide (Milk Of Mag) 30 ml BID PRN PO .CONSTIPATION; Start 01/03/19 at 12:00 Loperamide HCl (Imodium Cap) 2 mg Q6H PRN PO .DIARRHEA; Start 01/03/19 at 12:00 Gabapentin (Neurontin) 300 mg HS PO Last administered on 01/03/19at 20:18; Admin Dose 300 MG; Start 01/03/19 at 21:00 Acetaminophen (Tylenol Tab) 500 mg Q6 PO Last administered on 01/04/19at 06:11; Admin Dose 500 MG; Start 01/03/19 at 12:00 Oxycodone HCl (Roxicodone) 15 mg Q4H PRN PO .PAIN Last administered on 01/04/19at 05:10; Admin Dose 15 MG; Start 01/03/19 at 12:00 Oxycodone HCl (Roxicodone) 10 mg Q4H PRN PO .PAIN Last administered on 01/03/19at 21:34; Admin Dose 10 MG; Start 01/03/19 at 12:00 Oxycodone HCl (Roxicodone) 5 mg Q4H PRN PO .PAIN; Start 01/03/19 at 12:00 Hydromorphone HCl (Dilaudid) 1 mg Q4H PRN IV .BREAKTHROUGH PAIN Last admin istered on 01/04/19at 00:08; Admin Dose 1 MG; Start 01/03/19 at 12:00 Ketorolac Tromethamine (Toradol) 15 mg Q6H PRN IV .PAIN Last administered on 01/03/19at 20:13; Admin Dose 15 MG; Start 01/03/19 at 12:00 Ondansetron HCl (Zofran Inj) 4 mg Q6H PRN IV NAUSEA/VOMITING; Start 01/03/19 at 12:00 Diphenhydramine HCl (Benadryl) 25 mg Q6H PRN IV .PRURITUS; Start 01/03/19 at 12:00 Zolpidem Tartrate (Ambien) 10 mg HS PRN PO .INSOMNIA; Start 01/03/19 at 12:00 IV Flush (NS 3 ml) 3 ml per protocol IV ; Start 01/03/19 at 12:00 VTE Prophylaxis Risk score (from Nsg)>0 risk: 9 SCD applied (from Nsg): Yes Lines/Catheters IV Catheter Type: Saline Lock Chao in Place: No Assessment/Plan Assessment/Plan Assessment: Status post reverse total shoulder Plan: Begin PT this morning, discharge after. ELIZABETH ENRIQUEZ MD Jan 04, 2019 06:26
--- NOTE | 2019-01-04 06:26 | DS ---
Date/Time of Note Date/Time of Note DATE: 01/04/19 TIME: 06:26 Discharge Summary Admission/Discharge Info Admit Date/Time Jan 03, 2019 at 06:48 Discharge Date/Time 01/04/2019 Discharge Diagnosis Rotator cuff tear arthropathy Patient Condition: Good Hospital Course Admitted, underwent uncomplicated procedure. Discharged home after PT Home Meds Reported Medications Fluticasone/Umeclidin/Vilanter (Trelegy Ellipta 100-62.5-25) 1 Each Blst.w.dev, 1 EACH IH DAILY 01/03/19 Digoxin* (Digitek*) 250 Mcg Tablet, 0.25 MG PO DAILY, TAB 01/03/19 Enalapril Maleate* (Enalapril Maleate*) 10 Mg Tablet, 10 MG PO DAILY, TAB 01/03/19 Aripiprazole* (Abilify*) 5 Mg Tab, 5 MG PO DAILY, #30 TAB 01/03/19 Ipratropium-Albuterol (Ipratropium-Albuterol) 0.5-3 Mg/3 Ml Ampul.neb, 3 ML INHALATION Q6 PRN for WHEEZING AND SOB, #30 VIAL 01/03/19 Albuterol Sulfate* (Proair HFA*) 8.5 Gm Hfa.aer.ad, 2 PUFF INH Q4H PRN for WHEEZING AND SOB, #1 INHALER 01/03/19 Trazodone Hcl* (Trazodone Hcl*) 100 Mg Tablet, 100 MG PO QHS PRN for SLEEP, #30 TAB 01/03/19 Albuterol/Ipratropium* (Combivent Respimat*) 20-100 Mcg/Inh - 4 Gm Aer.w.adap, 2 PUFF INHALATION QID, #1 INHALER 01/03/19 Escitalopram Oxalate* (Lexapro*) 20 Mg Tablet, 20 MG PO DAILY, #30 TAB 01/03/19 Metformin Hcl* (Metformin Hcl*) 1,000 Mg Tablet, 1000 MG PO WITH BREAKFAST DINNE, #60 TAB 01/03/19 Fluticasone Propionate* (Flovent* HFA 220) 12 Gm Inha, 1 PUFF INHALATION BID, #1 INHALER 01/03/19 Aspirin (Low Dose Aspirin) 81 Mg Tablet.dr, 81 MG PO DAILY, #30 TAB 01/03/19 Simvastatin* (Zocor*) 10 Mg Tablet, 10 MG PO QHS, #30 TAB 01/03/19 Furosemide* (Furosemide*) 20 Mg Tablet, 20 MG PO DAILY, #60 TAB 01/03/19 Metoprolol Tartrate* (Lopressor*) 50 Mg Tab, 50 MG PO BID, #60 TAB 01/03/19 Doxycycline Hyclate* (Doxycycline Hyclate*) 100 Mg Tablet.dr, 100 MG PO BID, TAB STARTED 09-01-18 FOR 5 DAYS 01/03/19 Discontinued Reported Medications Metformin* (Glucophage*) 850 Mg Tablet, 850 MG PO WITH BREAKFAST DINNE, #30 TAB 08/24/16 Enalapril Maleate* (Enalapril Maleate*) 10 Mg Tablet, 10 MG PO BID, TAB 08/24/16 Discontinued Scripts Hydrocodone/Acetaminophen ([place] 5-325 Tablet) 1 Each Tablet, 1 TAB PO Q6H PRN for PAIN, #20 TAB Prov:YONORLANDO ROSENTHAL 08/27/16 Follow-up Plan 2 weeks in the office Primary Care Provider Not On Staff Doctor Pending Labs Laboratory Tests Test 01/03/19 07:56 01/03/19 12:55 01/03/19 17:24 Bedside Glucose 145 mg/dL (70-220) 165 mg/dL (70-220) 234 mg/dL (70-220) ELIZABETH ENRIQUEZ MD Jan 04, 2019 06:26
[2019-01-04 07:26] VITALS: BP 132/58; PULSE 78; RESP 20
[2019-01-04] MEDS: metFORMIN 500 MG TAB PO SCH (08:47)
[2019-01-04] MEDS ORDERED: ESCITALOPRAM 10 MG TAB PO SCH (09:00)
[2019-01-04] MEDS ORDERED: FUROSEMIDE 20 MG TAB PO SCH (09:00)
[2019-01-04] MEDS ORDERED: NON-FORMULARY/PATIENT OWN MED (Fluticasone/Umeclidin/Vilanter (Trelegy Ellipta 100-62.5-25 IH SCH (09:00)
[2019-01-04] MEDS ORDERED: ENALAPRIL 10 MG TAB PO SCH (09:00)
[2019-01-04] MEDS ORDERED: ARIPIPRAZOLE 5 MG TAB PO SCH (09:00)
[2019-01-04] MEDS: SENNA/DOCUSATE NA (8.6MG/50MG) TAB PO SCH (09:00)
[2019-01-04] MEDS: METOPROLOL 50 MG TAB PO SCH (09:09)
[2019-01-04] MEDS: VANCOMYCIN 500 MG (PMX) 100 ML IVPB SCH (09:10)
[2019-01-04] MEDS: oxyCODONE 5 MG TAB PO PRN (09:10)
[2019-01-04] MEDS: MOMETASONE 0.24 GM INHALER INH SCH (09:13)
[2019-01-04] MEDS ORDERED: DIGOXIN 0.25 MG TAB PO SCH (13:00)
== END 2019-01-04 12:15 | disposition home or self-care (01) | DRG 483 ==
LOC: EDSTATUS 09:30 → REC 01-03 06:48 → MS1 01-03 13:18
PROVIDERS: ADMIT Orthopaedic Surgery; ATTEND Orthopaedic Surgery
PROC: 0RRJ00Z Replacement of Right Shoulder Joint with Reverse Ball and Socket Synthetic Substitute, Open Approach (ICD-10-PCS; principal; 2019-01-03 09:30)
DX: T84.028A Dislocation of other internal joint prosthesis, initial encounter (principal); E11.9 Type 2 diabetes mellitus without complications; M19.111 Post-traumatic osteoarthritis, right shoulder; M19.011 Primary osteoarthritis, right shoulder; Z96.611 Presence of right artificial shoulder joint; T14.90XS Injury, unspecified, sequela; I10 Essential (primary) hypertension; E78.5 Hyperlipidemia, unspecified; J44.9 Chronic obstructive pulmonary disease, unspecified; J45.909 Unspecified asthma, uncomplicated; F31.9 Bipolar disorder, unspecified; Y84.8 Other medical procedures as the cause of abnormal reaction of the patient, or of later complication, without mention of misadventure at the time of the procedure; Y92.019 Unspecified place in single-family (private) house as the place of occurrence of the external cause; X58.XXXS Exposure to other specified factors, sequela; Z79.82 Long term (current) use of aspirin; Z79.84 Long term (current) use of oral hypoglycemic drugs
CPT/HCPCS: 82962; 86999; 88300; 97162; C1776; J0171; J0690; J0735; J1170; J1885; J2250; J2274; J2370; J2710; J2795; J3370; J7120